=== PATIENT | male | born 1945 | race Caucasian/White ===

== ENCOUNTER 2019-11-01 08:22 | Observation (INO) ==
--- NOTE | 2019-09-23 21:00 | PAT Medication Instructions ---
Medication Instructions Date of Service September 23, 2019 Home Medications albuterol sulfate 90 mcg/actuation aerosol inhaler 2 puffs INH QID PRN aspirin 81 mg tablet,delayed release 81 mg PO QAM budesonide-formoterol HFA 160 mcg-4.5 mcg/actuation aerosol inhaler 2 puffs INH BID carvedilol 6.25 mg tablet 6.25 mg PO BID diclofenac sodium 1 % topical gel 2 gm TOP BID gabapentin 100 mg capsule 100 mg PO TID isosorbide dinitrate 20 mg tablet 20 mg PO TID levothyroxine 112 mcg capsule 112 mcg PO QAM linagliptin 5 mg tablet 5 mg PO QAM meclizine 12.5 mg tablet 12.5 mg PO TID PRN metformin 500 mg tablet 500 mg PO BID multivitamin chewable tablet 1 tab PO DAILY nitroglycerin 0.4 mg sublingual tablet 0.4 mg SL Q5M PRN omega-3 fatty acids 1,000 mg capsule 1,000 mg PO BID potassium chloride 10 mEq capsule,extended release 10 meq PO BID torsemide 20 mg tablet 20 mg PO QAM triamcinolone acetonide 55 mcg nasal spray aerosol 1 sprays INTNAS QPM acetaminophen [Tylenol Arthritis Pain] 650 mg PO BID lisinopril 20 mg PO QAM Continue as directed nitroglycerin 0.4 mg sublingual tablet 0.4 mg SL Q5M PRN (if needed) STOP taking 2 weeks before surgery (or as soon as possible if surgery is within 2 weeks) omega-3 fatty acids 1,000 mg capsule 1,000 mg PO BID STOP taking 24 hours before surgery diclofenac sodium 1 % topical gel 2 gm TOP BID DO NOT take the morning of surgery linagliptin 5 mg tablet 5 mg PO QAM metformin 500 mg tablet 500 mg PO BID multivitamin chewable tablet 1 tab PO DAILY potassium chloride 10 mEq capsule,extended release 10 meq PO BID torsemide 20 mg tablet 20 mg PO QAM lisinopril 20 mg PO QAM Take morning of surgery With a small sip of water, OTHERWISE NOTHING TO EAT OR DRINK AFTER MIDNIGHT: albuterol sulfate 90 mcg/actuation aerosol inhaler 2 puffs INH QID PRN (use if needed; please bring with you to hospital day of surgery if possible) aspirin 81 mg tablet,delayed release 81 mg PO QAM budesonide-formoterol HFA 160 mcg-4.5 mcg/actuation aerosol inhaler 2 puffs INH BID carvedilol 6.25 mg tablet 6.25 mg PO BID gabapentin 100 mg capsule 100 mg PO TID isosorbide dinitrate 20 mg tablet 20 mg PO TID levothyroxine 112 mcg capsule 112 mcg PO QAM meclizine 12.5 mg tablet 12.5 mg PO TID PRN (if needed) acetaminophen [Tylenol Arthritis Pain] 650 mg PO BID (okay to take up to 4 hours prior to surgery if needed) Take evening before surgery albuterol sulfate 90 mcg/actuation aerosol inhaler 2 puffs INH QID PRN (if needed) budesonide-formoterol HFA 160 mcg-4.5 mcg/actuation aerosol inhaler 2 puffs INH BID carvedilol 6.25 mg tablet 6.25 mg PO BID gabapentin 100 mg capsule 100 mg PO TID isosorbide dinitrate 20 mg tablet 20 mg PO TID meclizine 12.5 mg tablet 12.5 mg PO TID PRN (if needed) metformin 500 mg tablet 500 mg PO BID potassium chloride 10 mEq capsule,extended release 10 meq PO BID triamcinolone acetonide 55 mcg nasal spray aerosol 1 sprays INTNAS QPM acetaminophen [Tylenol Arthritis Pain] 650 mg PO BID Other Notes If you have any questions please call us at [phone] or [phone] or [phone] or [phone]
--- NOTE | 2019-09-25 11:41 | Anesthesiology Consultation ---
Date of Service September 25, 2019 Assessment & Plan (1) Encounter for pre-operative examination: Per PAT assessment on 09/24: Travel screen- Lives in [place]. No known COVID-19 positive contacts. No history of COVID-19 testing. No current COVID-19 related symptoms. Patient having preop COVID testing at [facility]. Awaiting results. - Cardiology office visit: 08/22/19: "Chronic diastolic heart failure now with volume overload secondary to non compliance with diet.. Wear compression stocking above knees during day time.. Take torsemide 20 mg today after going home today.. Take torsemide 20 mg 3 tabs in the morning on 08/22 and .. From Take torsemide 40 mg daily.. Check weight daily.. Fluid restriction and low slat diet were emphasized." Per cardiology physician followup note: 09/05/19: "Spoke with pt's via phone for follow up.. She reports that his LE edema has improved.. She had not noted SOB and pt has not reported SOB.. Reviewed when to call with worsening symptoms and weight gain." Advised to f/u 11/2019. No LE edema noted at PAT visit 09/25/19. - Check BSG AM DOS Chart Review Chart Review: Acceptable Risk for Surgery (pending COVID testing) and Patient seen in Pre Admission Testing Teaching & Discussion Pre-Anesthesia Teaching/Discussion Notes: Instructed NPO after midnight before surgery,except medications with 15 cc of water. Medication instructions provided according to the PAT guidelines. History Surgery Operation Date: 11/01/19 11:10 Proposed Procedures p Left Total Knee Arthroplasty - Cleveland Umana MD Height/Weight Height: 6 ft Weight: 127.9 kg Allergies Allergy/AdvReac Type Severity Reaction Status Date / Time No Known Allergies Allergy Verified 09/21/19 08:48 Medications Home Medications Medication Instructions Recorded Confirmed Last Taken albuterol sulfate 90 mcg/actuation 2 puffs INH QID PRN 04/26/19 09/21/19 Unknown aerosol inhaler aspirin 81 mg tablet,delayed 81 mg PO QAM 04/26/19 09/21/19 Unknown release budesonide-formoterol HFA 160 2 puffs INH BID 04/26/19 09/21/19 Unknown mcg-4.5 mcg/actuation aerosol inhaler carvedilol 6.25 mg tablet 6.25 mg PO BID 04/26/19 09/21/19 Unknown diclofenac sodium 1 % topical gel 2 gm TOP BID 04/26/19 09/21/19 Unknown gabapentin 100 mg capsule 100 mg PO TID 04/26/19 09/21/19 Unknown isosorbide dinitrate 20 mg tablet 20 mg PO TID 04/26/19 09/21/19 Unknown levothyroxine 112 mcg capsule 112 mcg PO QAM 04/26/19 09/21/19 Unknown linagliptin 5 mg tablet 5 mg PO QAM 04/26/19 09/21/19 Unknown meclizine 12.5 mg tablet 12.5 mg PO TID PRN 04/26/19 09/21/19 Unknown metformin 500 mg tablet 500 mg PO BID 04/26/19 09/21/19 Unknown multivit with min-folic 1 tab PO DAILY 04/26/19 09/21/19 Unknown acid-lutein 400 mcg-250 mcg chewable tablet nitroglycerin 0.4 mg sublingual 0.4 mg SL Q5M PRN 04/26/19 09/21/19 Unknown tablet omega-3 fatty acids 1,000 mg 1,000 mg PO BID 04/26/19 09/21/19 Unknown capsule potassium chloride 10 mEq 10 meq PO BID 04/26/19 09/21/19 Unknown capsule,extended release torsemide 20 mg tablet 20 mg PO QAM 04/26/19 09/21/19 Unknown triamcinolone acetonide 55 mcg 1 sprays INTNAS QPM 04/26/19 09/21/19 Unknown nasal spray aerosol acetaminophen [Tylenol Arthritis 650 mg PO BID 09/19/19 09/21/19 Unknown Pain] lisinopril 20 mg PO QAM 09/19/19 09/21/19 Unknown Past Medical History Medical History CHF (congestive heart failure) COPD (chronic obstructive pulmonary disease) stable Coronary arteriosclerosis per records Diabetes mellitus, type 2 NIDDM Hyperlipidemia Hypertension Hypothyroidism Obesity Sleep apnea BIPAP Exercise / Class Metabolic Activity III < 4 Walking/Shop/Light housework Past Family History Family History Other No family history of adverse response to anesthesia Past Surgical History Surgical History History of bilateral cataract extraction History of carpal tunnel surgery unsure of which wrist History of cholecystectomy History of colonoscopy with polypectomy History of sinus surgery History of tooth extraction all teeth History of umbilical hernia repair Past Anesthesia History No Hx of Anesthesia Complications and No Family Hx of Anesthesia Complications History of PONV No Hx of PONV and No Hx of Motion Sickness Social History Smoking Status: Former smoker tobacco type: smokeless tobacco Do You Dip or Chew Tobacco: Yes (1 bag a week/advised npo am dos) Smoking End Date: quit 14 yrs ago Hx Alcohol Use: No (quit 20yrs ago) Hx Substance Use: No substance use type: does not use Review of Systems Patient denies chest pain, shortness of breath, reflux, cough, wheezing, palpitations. Physical Exam Vital Signs VITALS BP 111/65 P 75 TEMP 98.2 SP02 95%Ra RESP 18 PHYSICAL Full neck and c-spine range of motion. Full TMJ range of motion. TMD 3 finger breaths (difficult to palpate) Mallampati Score 1 Dentition: upper/lower dentures (full) Lungs: clear throughout to auscultation Cardiac: regular rate and rhythm, no murmurs noted Spine: normal Carotid arteries: negative bruit Extremities: no edema Thick neck Testing Laboratory Results 09/25/19 12:06 09/25/19 12:06 PT 11.3 Seconds (9.0-12.0) 09/25/19 12:06 INR 1.1 (0.9-1.1) 09/25/19 12:06 APTT 25.1 Seconds (21.0-31.0) 09/25/19 12:06 Hemoglobin A1c 7.0 % (4.5-5.6) H 09/25/19 12:06 Blood Type O Positive 09/25/19 12:06 Antibody Screen NEGATIVE 09/25/19 12:06 Electrocardiogram Date: 01/27/19 NSR with sinus arrhythmia at 73bpm. Chest X-Ray Date: 09/25/19 Cardiac silhouette is enlarged. There is mild mediastinal widening. No pneumothorax, large pleural effusion, overt pulmonary edema or lobar airspace consolidation typical for pneumonia. Mild linear subsegmental bibasilar densities are noted along with blunting of the posterior costophrenic angles. Degenerative changes of the shoulders and spine. IMPRESSION: Cardiomegaly without acute process. Mild linear subsegmental bibasilar atelectasis. Echocardiogram Date: 12/01/18 EF 68%. No RWMA. Mildly increased cLV wall thickness. Grade I DD. ADARSH. Mild AV sclerosis. Mildly enlarged proximal ascending thoracic aorta. Stress Test Date: 09/30/14 Type: DSE DSE without inducible ischemia or wall motion abnormalities at 96% MPHR. LVEF 60%. Mildly increased cLV wall thickness. No significant valvular disease.
--- NOTE | 2019-09-25 12:42 | XRay Report ---
XR chest Pre-admission PA/Lat HISTORY: 74 years-old Male PAT preoperative exam. No acute chest complaints COMPARISON: None TECHNIQUE: PA and lateral views of the chest FINDINGS: Cardiac silhouette is enlarged. There is mild mediastinal widening. No pneumothorax, large pleural ef fusion, overt pulmonary edema or lobar airspace consolidation typical for pneumonia. Mild linear subs egmental bibasilar densities are noted along with blunting of the posterior costophrenic angles. Dege nerative changes of the shoulders and spine. IMPRESSION: 1. Cardiomegaly without acute process. 2. Mild linear subsegmental bibasilar atelectasis. ACT 112: Negative or not required by law. The above report was generated using voice recognition software. It may contain grammatical, syntax o r spelling errors. Electronically signed by: Jamal French M.D. 09/25/2019 12:40 PM
[2019-09-25 14:14] LABS: Basophils # (auto) 0.03 K/uL (0-0.2); Basophils % (auto) 0.3 %; Eosinophils # (auto) 0.32 K/uL (0-0.5); Eosinophils % (auto) 3.1 %; Hematocrit (blood only) 41.3 % (42-52); Hemoglobin 13.7 g/dL (14.0-18.0); Immature Granulocytes # (auto) 0.11 K/uL (0.00-0.02); Immature Granulocytes % (auto) 1.1 %; Lymphocytes # (auto) 1.99 K/uL (1.2-3.4); Lymphocytes % (auto) 19.5 %; Mean Corpuscular Hemoglobin 31.6 pg (25-34); Mean Corpuscular Hgb Conc 33.2 g/dL (32-36); Mean Corpuscular Volume 95.2 fL (80-100); Mean Platelet Volume 9.2 fL (7.4-10.4); Monocytes % (auto) 5.9 %; Neutrophils # (auto) 7.18 K/uL (1.4-6.5); Neutrophils % (auto) 70.1 %; Platelet Count 246 K/uL (130-400); RDW Coefficient of Variation 12.9 % (11.5-14.5); RDW Standard Deviation 44.3 fL (36.4-46.3); Red Blood Count 4.34 M/uL (4.7-6.1); White Blood Count 10.23 K/uL (4.8-10.8)
[2019-09-25 14:17] LABS: Estimated Average Glucose 154 mg/dl
[2019-09-25 14:22] LABS: BUN Creatinine Ratio 25.2 (10-20); Calcium 8.7 mg/dl (8.5-10.1); Est GFR (African American) 96.5; Est GFR (Non-African American) 83.3; Potassium 3.8 mmol/L (3.5-5.1)
[2019-09-25 14:25] LABS: INR 1.1 (0.9-1.1); Partial Thromboplastin Ratio 0.9; Partial Thromboplastin Time 25.1 Seconds (21.0-31.0); Prothrombin Time 11.3 Seconds (9.0-12.0)
--- NOTE | 2019-10-27 18:35 | History and Physical Report ---
DATE OF ADMISSION: 11/01/2019 CHIEF COMPLAINT: Bilateral knee pain and discomfort. HISTORY OF PRESENT ILLNESS: The patient is a 74-year-old gentleman who is referred by my partner, Dr. Schilling for surgical treatment of his knees. He has got a long history of bilateral knee pain and discomfort that has gotten worse over time. Both knees hurt him significantly. The right knee hurts a bit more, but the left knee, when it hurts, it causes severe pain for several days. He has trouble getting around. He uses a cane most of the time due to his knees. He feels like to going to give out any time. He has had steroid shots, which helped only very temporarily. He is really hoping to get both of his knees replaced. It is really limiting his activities. PAST MEDICAL HISTORY: Significant for: 1. Hypertension. 2. Elevated cholesterol. 3. Asthma. 4. COPD. 5. Coronary artery disease. 6. Sleep apnea. 7. Diabetes. 8. Obesity. PAST SURGICAL HISTORY: Previous surgeries include: 1. Herniorrhaphy. 2. Cholecystectomy. ALLERGIES: None. CURRENT MEDICINES: Include: 1. Tylenol. 2. Albuterol inhaler. 3. Aspirin. 4. Symbicort. 5. Carvedilol. 6. Diclofenac topical cream. 7. Gabapentin. 8. Isosorbide. 9. Levothyroxine. 10. Tradjenta. 11. Lisinopril. 12. Meclizine. 13. Metformin. 14. Multivitamin. 15. Nitroglycerin. 16. Fish oil. 17. Potassium chloride. 18. Furosemide. 19. Triamcinolone nasal spray. SOCIAL HISTORY: A 74-year-old male. He is . He is from [place]. He does not smoke. FAMILY HISTORY: Noncontributory. REVIEW OF SYSTEMS: Significant for diabetes. Denies any chest pain or shortness of breath. No history of DVT or PE. No known bleeding problems. He does have a long history of heart disease and multiple comorbidities. PHYSICAL EXAMINATION: GENERAL: Physical examination shows a pleasant elderly male. Looks clinically to be in reasonably good health. HEENT: Benign. NECK: Supple, no lymphadenopathy. LUNGS: Clear to auscultation. HEART: Regular rate and rhythm. ABDOMEN: Soft, nontender, nondistended. EXTREMITIES: Grossly neurovascularly intact except as follows. Examination of both lower extremities reveals the patient walks with a fairly unsteady gait. He requires a cane to ambulate. He walks with a shuffling kind of gait with his knee slightly bent. Examination of the left knee reveals neutral alignment. He has got about 10-15 degree flexion contracture. He can flex to 110 degrees. He has got no pain with hip motion. Small knee effusion. He is neurologically intact. Examination of the right knee reveals slight varus alignment. He is tender over the medial joint line. Range of motion is 10-120. No instability. X-RAYS: X-rays of both knees reveal advanced bilateral knee DJD. He has got complete loss of his medial joint space on both sides. He has got some loose bodies in his knee, particularly on the left. ASSESSMENT: A 74-year-old male with multiple medical comorbidities including hypertension, coronary artery disease, emphysema, chronic obstructive pulmonary disease, elevated cholesterol and diabetes with bilateral knee degenerative joint disease. It is really limiting his activities. He has failed conservative care. He would like to consider a knee replacement. PLAN: We talked about treatment options. He is not an optimal surgical candidate for either knee, but certainly not a candidate for bilateral knee replacement. We will proceed cautiously with a left knee replacement and see how he does. The risks and benefits of left total knee replacement were explained to the patient including but not limited to DVT, PE, , infection, neurological injury, vascular injury, bleeding problem, pain, limited range of motion, stiffness, failure to relieve symptoms, incomplete relief of symptoms, need for further surgery in future, fracture, leg length inequality, nerve palsy, etc. The patient understands and desires to proceed. Informed consent was obtained. We did talk to him about holding his lisinopril and metformin in the morning of surgery. He will take the Carvedilol. We will likely have the Cardiology Service follow him in the hospital for fluid management. He is hoping to be discharged to home using home health. SHASHA
[~2019-11-01 08:22] MED LIST: ACETAMINOPHEN 500 MG TAB PO SCH; BUPIVACAINE 0.5 % 5 MG/1 ML PF 10ML VIAL ONE; BUPIVACAINE LIPOSOME/PF 266 MG, BUPIVACAINE/EPINEPHRINE 50 ML, SODIUM CHLORIDE 0.9% 30 ... INFIL SCH; BUPIVACAINE/EPINEPHRINE 0.25% 1:200,000 30 ML VIAL ONE; CEFAZOLIN 3000MG 72.5 ML IV SCH; DEXAMETHASONE SOD INJ 4 MG/ML VIAL ONE; FAMOTIDINE 20 MG TAB PO SCH; GABAPENTIN 300 MG CAP PO SCH; LR 500ML BOLUS, THEN 15ML/HR IV SCH; METOCLOPRAMIDE HCL 10 MG TABLET PO SCH
--- NOTE | 2019-11-01 08:40 | History & Physical Bridge Note ---
Date of Service November 01, 2019 History & Physical Bridge Note I have examined the patient, reviewed the History & Physical and in the interval since the performance of the History & Physical I have noted the following changes of clinical significance: no changes noted
[2019-11-01] MEDS: LR 60ML/HR IV SCH ×2 (09:27→11:26)
[2019-11-01] MEDS ORDERED: TRANEXAMIC ACID / 0.7% NACL 1,000 MG/100 ML BAG IV STA (09:46)
[2019-11-01] MEDS ORDERED: ONDANSETRON INJ 2 MG/ML 2 ML VIAL ONE (10:06)
[2019-11-01] MEDS ORDERED: fentaNYL citrate 100 MCG/2 ML VIAL ONE ×2 (10:06→13:01)
[2019-11-01] MEDS ORDERED: LIDOCAINE HCL 2% 2 ML VIAL/AMP(20MG/ML) INFIL ONE (10:06)
[2019-11-01] MEDS ORDERED: MIDAZOLAM HCL 1 MG/ML 2ML VIAL ONE (10:06)
[2019-11-01] MEDS ORDERED: PROPOFOL IV EMULSION 10 MG/ML 20 ML VIAL IV ONE ×4 (10:06→12:40)
[2019-11-01] MEDS ORDERED: BACITRACIN INJ 50,000 UNIT VIAL ONE (11:35)
[2019-11-01] MEDS ORDERED: SODIUM CHLORIDE 0.9% PF 50 ML VIAL ONE (11:35)
[2019-11-01] MEDS ORDERED: BUPIVACAINE/EPINEPHRINE 0.25% 1:200,000 30 ML VIAL ONE (11:35)
[2019-11-01] MEDS ORDERED: BUPIVACAINE LIPOSOME 1.3% 266 MG/20 ML VIAL ONE (11:35)
[2019-11-01] MEDS ORDERED: PHENYLEPHRINE HCL 10 MG/ML VIAL ONE (12:22)
[2019-11-01] MEDS ORDERED: TRANEXAMIC ACID / 0.7% NACL 1000MG/100ML BAG IV ONE (13:14)
--- NOTE | 2019-11-01 13:47 | Post Operative Brief Note ---
PG Immediate Post Op with CF Date of Surgery November 01, 2019 Pre & Post Diagnosis Operation Date: 11/01/19 10:40 Pre-Op Diagnosis: Left Knee Degenerative Joint Disease Post-Op Diagnosis: Left Knee Degenerative Joint Disease I identified the patient and participated in the time-out.: Yes Procedure Operation Date: 11/01/19 10:40 Actual Procedures p Left Total Knee Arthroplasty(Left) - Cleveland Umana MD Surgeon Cleveland Umana MD Arts Therapist Lay, PAC Estimated Blood Loss 50 Findings Consistent with Post-Op Diagnosis Fluids 2400 cc Specimens Specimen Description: Permanent A: Left Knee Bone and Tissue Drains Mendiola Catheter (inserted by PA-C after anesthesia without difficulty) Anesthesia Type Spinal MAC Disposition Accompanied Patient To Recovery: No Disposition: Recovery Room
--- NOTE | 2019-11-01 14:09 | XRay Report ---
XR knee LT 1 or 2V routine HISTORY: 74 years-old Male Surgical Post Op acute left knee total joint arthroplasty COMPARISON: Knee radiographs 09/21/2019 TECHNIQUE: 2 views of the left knee FINDINGS: Left knee total joint arthroplasty and patella resurfacing. Anterior midline skin deonna are noted a long with expected postoperative soft tissue swelling and deep tissue air with surgical drainage cath eter. Arterial calcifications. No acute fracture, malalignment or retained foreign body. IMPRESSION: Left knee total joint arthroplasty with expected postoperative changes. ACT 112: Negative or not required by law. The above report was generated using voice recognition software. It may contain grammatical, syntax o r spelling errors. Electronically signed by: Jamal French M.D. 11/01/2019 2:08 PM
--- NOTE | 2019-11-01 14:09 | Operative Report ---
Post Operative Report Pre & Post Diagnosis Operation Date: 11/01/19 10:40 Pre-Op Diagnosis: Left Knee Degenerative Joint Disease Post-Op Diagnosis: Left Knee Degenerative Joint Disease I identified the patient and participated in the time-out.: Yes Procedure Operation Date: 11/01/19 10:40 Actual Procedures p Left Total Knee Arthroplasty(Left) - Cleveland Umana MD Surgeon Cleveland Umana MD Real Estate Coordinator Lay, DURGA Estimated Blood Loss 50 Findings Consistent with Post-Op Diagnosis Operative findings revealed advanced left knee DJD. Extensive grade 4 [id number] disease of the medial compartment. He had a varus deformity to his knee and about a 15degree to 20 degree flexion contracture. Moderate-sized joint effusion. He had osteophytes in all 3 compartments most severe in the medial side. Fluids 2400 cc. Specimens Left knee sent for pathology. Drains None. Complications none Disposition Accompanied Patient To Recovery: No Disposition: Recovery Room Indications Patient is a 74-year-old gentleman with a host of medical problems whose had a long history of bilateral knee pain discomfort. He has been through extensive conservative treatment which failed. He is really limit his activities. He had severe arthritis in both knees with significant flexion contractures and having trouble getting around. He elected proceed with surgical treatment. Teofilo Liu, physician graduate assistant, was present for the entire procedure. He was critical for patient positioning, prepping, draping, retraction, exposure, wound closure, and application of the sterile dressing. Description of Procedure Operative implants consisted of: 1. Biomet Vanguard size 75 left posterior by femoral component. 2. Biomet size 79 tibial tray. 3. 10 mm posterior stabilized polyethylene insert. 4. 34 x 8 and half all poly-patella. Patient was taken to the operating room identified and placed on the operating table supine position protectors were properly padded. IV antibiotics arrived by anesthesia team. A spinal anesthetic and abductor canal block had provided holding area. Mendiola catheter was placed in sterile fashion. A left thigh turn was then placed in the left lower extremities and prepped and draped in usual sterile fashion. The left leg was elevated and exsanguinated with use of an Esmarch and turn was placed at 300 mmHg. An anterior approach to the left knee was then performed to a longitudinal incision centered over the patella. Sharp dissection was carried through subcutaneous tissue down to the level of the extensor mechanism. A medial parapatellar arthrotomy incision was made. Some subperiosteal dissection was carried out medially. The fat pad was resected from each patella tendon. Lateral patellofemoral ligament was released. Patella was subluxated laterally and the knee was flexed. The osteophytes were taken off the distal femur. The ACL and PCL were then released from distal femur the tibia subluxate anteriorly. External tibial alignment jig was placed in the interface the tibia and adjusted 16 mm medially. Proximal tibial cut was made to move about a millimeter bone from most efficient aspect of the medial till plateau. This did take a fairly large piece off laterally. Some osteophytes were taken off medial and posterior medially. Attention drawn the femur. The distal femur was entered with a sharp drop with the intramedullary canal was suction. A left 6 degree valgus cutting guide was placed but distal femoral cutting block was pinned in place. Distal femoral cut was made to take an additional 3 mm of bone off distal femur. The femur was then sized to a size 75. We downsized slightly. The AP cutting block was pinned parallel to the epicondylar axis which was 6 degrees of external rotation. The anterior cut, anterior chamfer, posterior cut, posterior chamfer cuts were made. Box cutting guide was placed in a just slight lateral box cut was made. The knee was flexed. The remnants of the medial lateral menisci were excised. The osteophytes were taken off the posterior aspect of the femur. A trial femoral component was placed for the tibial tray was pinned in maximum external rotation and the drill and stem punch were used to create defect in proximal tip for the tibial tray. The knee was then trialed the 10 mm insert fit most appropriately. Attention drawn the patella. The patella was cleaned of all soft tissues. Patella thickness measured 26 mm in thickness was cut down to 16. He was sized to a size 34 patella. The lug holes were drilled for the 34 patella. Lateral osteophyte was removed. Patella button was placed. Knee was taken through range of motion patella tracked nicely with no thumbs test. Attention drawn to placing the permanent components. All trial components removed. Bone plug was placed in the distal femur limit blood loss put a double batch [place] G cement was mixed. A [employer] Vanguard size 75 left posterior by femoral component, a size 79 tibial tray, a 10 mm posterior box polyethylene insert, and a 34 x 8 and half all poly-patella were then cemented in place. The knee was brought out into full extension total cement hardened. Final cement check was then performed. Pericapsular tissues were injected with total 100 cc of combination of 20 cc of Exparel, 30 cc normal saline, 50 cc of quarter percent Marcaine with epinephrine. Patient did receive 1 g tranexamic acid. The tourniquet was then let down for final tourniquet time of 62 minutes. Hemostasis assured use electrocautery. The wounds once again irrigated and the extensor mechanism was then closed with combination 1 PDS suture #1 Vicryl suture in [id number] fashion. Extensor mechanism checked found to be intact the subcutaneous tissue then closed with 2 Dexon suture in a buried interrupted fashion skin was closed skin deonna. Leg was then cleaned dried a sterile dressing composed Xeroform, 4 x 4's, sterile cast padding, Rudy bandage were applied. Patient then transferred to the recovery room in stable condition. Patient tolerated procedure well and there were no complications. I attest to the content of the Intraoperative Record and any orders documented therein. Any exceptions are noted below.
--- NOTE | 2019-11-01 14:36 | Anesthesiology Progress Note ---
Date of Service November 01, 2019 Anesthesia Post Procedure Vital Signs Vital Signs: Temp Pulse Pulse Resp BP BP Pulse Ox 11/01/19 14:20 92 H 22 116/75 93 11/01/19 14:10 89 22 114/72 97 11/01/19 14:00 85 18 117/71 97 11/01/19 13:57 36.1 C L 93 H 20 113/66 97 11/01/19 09:38 87 18 135/78 93 11/01/19 09:17 37 C 80 20 126/73 20 L Transfer of Care Handoff Completed per policy Notes Mental Status: alert / awake / arousable Patient Amnestic to Procedure: Yes Nausea / Vomiting: adequately controlled Pain: adequately controlled Airway Patency, RR, SpO2: stable & adequate BP & HR: stable & adequate Hydration State: stable & adequate Neuraxial Anesthesia: was administered and sensory block is resolving Anesthetic Complications: no major complications apparent
[2019-11-01] MEDS ORDERED: MAGNESIUM HYDROXIDE SUSP 30 ML UDC PO PRN (15:20)
[2019-11-01] MEDS ORDERED: METOCLOPRAMIDE HCL INJ 5 MG/ML 2 ML VIAL IV PRN (15:20)
[2019-11-01] MEDS ORDERED: GLUCOSE 40% GEL 15 GM TUBE PO PRN (15:20)
[2019-11-01] MEDS ORDERED: MECLIZINE 12.5 MG TAB PO PRN (15:20)
[2019-11-01] MEDS ORDERED: CARBOHYDRATES FOR HYPOGLYCEMIA PO PRN (15:20)
[2019-11-01] MEDS ORDERED: DEXTROSE 50% 50 ML SYRINGE IV PRN (15:20)
[2019-11-01] MEDS ORDERED: HYDROmorphone INJ 0.5 MG/0.5 ML SYR IV PRN (15:20)
[2019-11-01] MEDS ORDERED: ALUMINUM/MAGNESIUM SUSP 30 ML UDC PO PRN (15:20)
[2019-11-01] MEDS ORDERED: NALOXONE HCL 0.4 MG/1 ML VIAL/CARP IV PRN (15:20)
[2019-11-01] MEDS ORDERED: GLUCOSE 10 TABS/TUBE PO PRN (15:20)
[2019-11-01] MEDS ORDERED: GLUCAGON FOR INJ 1 MG VIAL SQ PRN (15:20)
[2019-11-01] MEDS ORDERED: NITROGLYCERIN SL 0.4 MG/TAB TAB SL PRN (15:20)
[2019-11-01] MEDS ORDERED: TRAMADOL HCL 50 MG TABLET PO PRN (15:20)
[2019-11-01] MEDS ORDERED: ONDANSETRON INJ 2 MG/ML 2 ML VIAL IV PRN (15:20)
[2019-11-01] MEDS ORDERED: bisacodyL 10 MG SUPP PR PRN (15:20)
[2019-11-01] MEDS ORDERED: TAMSULOSIN HCL 0.4 MG CAP PO PRN (15:20)
[2019-11-01] MEDS ORDERED: PHARMACY GLYCEMIC MGMT CONSULT PRN (15:22)
[2019-11-01] MEDS ORDERED: ALBUTEROL HFA 8 GM INHALER INH PRN (15:37)
--- NOTE | 2019-11-01 16:22 | Hospitalist Consultation ---
Date of Consultation November 01, 2019 Assessment & Plan (1) Left knee DJD: - Pain management, bowel regimen and DVT ppx per the primary team with asa 81 mg BID - PT/OT consults, pt is planning on outpatient therapy with home health services on discharge - Follow am CBC to monitor for acute blood loss (2) CHF (congestive heart failure): - Cont beta blockade, asa, RUDY and diuretic as per [employer] meds (3) Hypertension: - Cont lisinopril 20 mg QAM, carvedilol 6.25 mg BID - BP stable at 130/82 (4) Hyperlipidemia: - Not on statin therapy (5) Hypothyroidism: - Cont levothyroxine 112 mcg daily (6) Diabetes: - ISS with accuchecks achs, - Hold metformin and linagliptin 5 mg daily (7) COPD (chronic obstructive pulmonary disease): - Cont budesonide-formoterol inhaler, bipap HS (8) GERD (gastroesophageal reflux disease): - Not on PPI at home (9) Sleep apnea: - Cont home bipap, but machine from home, is currently on room air. (10) Obesity (BMI 30-39.9): - Diet and exercise to be encouraged - BMI of 38.2 DVT ppx: Teds, asa BID CODE: FULL Dispo: From home, dc likely within 1-2 days. Supervising Physician Co-Signing Physician Notes I personally saw and examined the patient. I verified all hinojosa points and agree with KAVITA Angeles with the following exceptions and/or additions: 74 year old male s/p left TKA. Currently feels well. No questions or concerns. O/E Pt chewing tobacco, Bibasal decreased air entry, pitting edema to mid thins 1+ b/l. A/P agree with plan above, medically appears stable. Advised strongly to give up the chewing tobacco and use nicotine replacement products as prescribed. History of Present Illness Reason for Consultation: Medical management Attending Physician: Cleveland Umana MD History of Present Illness This is a 74 yo M with PMHx of Chronic diastolic CHF, CAD, HTN, HLD, Dm II, COPD, hypothyroidism, obesity with BMI of 38.2, and sleep apnea on bipap who underwent elective Left TKA by Dr. Umana on 11/01/2019. Pt is doing well, has sensation coming back into his feet and can move the left foot/toes without any difficulty. He plans on having PT/OT come into his home, and then transition to outpatient PT once he is able to. Patient has not yet had anything to eat, but tolerating fluids without any difficulty. Last BM was yesterday morning. He lives at home with his and typically takes care of her. Patient denies any other acute complaints or concerns at bedside. He has brought his BiPAP machine in from home for use. Allergies Allergy/AdvReac Type Severity Reaction Status Date / Time No Known Allergies Allergy Verified 11/01/19 08:57 Home Medications Home Medications Medication Instructions Recorded Confirmed Type albuterol sulfate 90 mcg/actuation 2 puffs INH QID PRN 04/26/19 11/01/19 History aerosol inhaler aspirin 81 mg tablet,delayed 81 mg PO QAM 04/26/19 11/01/19 History release budesonide-formoterol HFA 160 2 puffs INH BID 04/26/19 11/01/19 History mcg-4.5 mcg/actuation aerosol inhaler carvedilol 6.25 mg tablet 6.25 mg PO BID 04/26/19 11/01/19 History diclofenac sodium 1 % topical gel 2 gm TOP BID 04/26/19 11/01/19 History levothyroxine 112 mcg capsule 112 mcg PO QAM 04/26/19 11/01/19 History linagliptin 5 mg tablet 5 mg PO QAM 04/26/19 11/01/19 History meclizine 12.5 mg tablet 12.5 mg PO TID PRN 04/26/19 11/01/19 History metformin 500 mg tablet 500 mg PO BID 04/26/19 11/01/19 History multivit with min-folic 1 tab PO DAILY 04/26/19 11/01/19 History acid-lutein 400 mcg-250 mcg chewable tablet nitroglycerin 0.4 mg sublingual 0.4 mg SL Q5M PRN 04/26/19 11/01/19 History tablet omega-3 fatty acids 1,000 mg 1,000 mg PO BID 04/26/19 11/01/19 History capsule potassium chloride 10 mEq 10 meq PO BID 04/26/19 11/01/19 History capsule,extended release torsemide 20 mg tablet 20 mg PO QAM 04/26/19 11/01/19 History triamcinolone acetonide 55 mcg 1 sprays INTNAS QPM 04/26/19 11/01/19 History nasal spray aerosol acetaminophen [Tylenol Arthritis 650 mg PO BID 09/19/19 11/01/19 History Pain] lisinopril 20 mg PO QAM 09/19/19 11/01/19 History Patient History Medical History CHF (congestive heart failure) COPD (chronic obstructive pulmonary disease) stable Coronary arteriosclerosis per records Diabetes mellitus, type 2 NIDDM Hyperlipidemia Hypertension Hypothyroidism Obesity Sleep apnea BIPAP Surgical History History of bilateral cataract extraction History of carpal tunnel surgery unsure of which wrist History of cholecystectomy History of colonoscopy with polypectomy History of sinus surgery History of tooth extraction all teeth History of umbilical hernia repair Family History Other No family history of adverse response to anesthesia Social History Smoking Status: Never smoker Smoking End Date: quit 14 yrs ago; Second Hand Exposure: Yes ( smokes); Do You Dip or Chew Tobacco: Yes (1 bag a week/advised npo am dos); Tobacco Cessation Education Requested by Patient: No Hx Alcohol Use: No (quit 20yrs ago) Hx Substance Use: No Preferred Language: Persian Communication Ability: Effective Rodent Exterminator Required: No Beliefs That Will Affect Care: None Current Living Situation: Spouse Other Information That Helps Us Care for You: No Review of Systems Review of Systems: Constitutional: No fever, sweats or chills Eyes: No diplopia, no worsening or blurred vision ENT: normal hearing, no trouble swallowing Respiratory: No cough, sputum, dyspnea at rest or on exertion Cardiovascular: No chest pain, tightness or palpitations Abdomen: No pain, nausea, vomiting, diarrhea or constipation Musculoskeletal: No joint pain, calf pain, swelling Neurologic: No weakness, numbness/tingling, or balance problems Psychiatric: No anxiety or depression Skin: No rash or itch Physical Exam Physical Exam: General: awake, alert, no apparent distress, + obese, BMI 38.2 Head: Normocephalic, atraumatic ENT: PERRL, EOMI, no pharyngeal exudate, mucous membranes moist Chest: Clear to auscultation, on room air, no adventitious breath sounds Cardiac: Regular rate and rhythm, no murmur, no JVD, normal peripheral pulses, good capillary refill Abdominal: NABS x 4 quadrants, abdominally obese, mildly distended, soft, nontender to palpation, no rebound, guarding or tenderness Extremities: LLE Rudy wrap in place, Hemovac drain, dressing C/D/I,+ ice pack, otherwise normal inspection, no peripheral edema or erythema, calfs nontender to palpation Psych: Normal mood and affect Neuro: AAO x 3, no gross motor deficits, speech is clear, + left-sided peripheral sensory deficit compared to the right Skin: no rash or erythema Results & Data Results & Data ([facility]) Vital Signs (Past 12 Hours) Vital Signs Temp Pulse Pulse Resp BP BP Pulse Ox 11/01/19 16:00 36.5 C 81 15 126/72 93 11/01/19 15:30 36.7 C 86 14 122/80 91 11/01/19 15:00 36.6 C 92 H 15 119/79 93 11/01/19 14:40 87 20 123/84 94 11/01/19 14:30 36.4 C L 88 20 127/77 94 11/01/19 14:20 92 H 22 116/75 93 11/01/19 14:10 89 22 114/72 97 11/01/19 14:00 85 18 117/71 97 11/01/19 13:57 36.1 C L 93 H 20 113/66 97 11/01/19 09:38 87 18 135/78 93 11/01/19 09:17 37 C 80 20 126/73 20 L PG Care Time/CCT Total # of Minutes Spent Total Time Spent with Patient: Total time spent is greater than 50% in coordination of care (as documented) at patient's floor/unit and/or counseling patient: Coding Level of Care Code 11417 Inpt Consult Level 3 Diagnoses Left knee DJD M17.12 CHF (congestive heart failure) I50.9 Hypertension I10 Hyperlipidemia E78.5 Hypothyroidism E03.9 Diabetes E11.9 COPD (chronic obstructive pulmonary disease) J44.9 GERD (gastroesophageal reflux disease) K21.9 Sleep apnea G47.30 Obesity (BMI 30-39.9) E66.9
[2019-11-01] MEDS: KETOROLAC TROMETHAMINE 15 MG/ML VIAL IV SCH ×2 (16:45→21:10)
[2019-11-01] MEDS: ACETAMINOPHEN 500 MG TAB PO SCH ×2 (16:45→23:37)
[2019-11-01] MEDS: FERROUS GLUCONATE 324 MG TAB PO SCH (16:47)
[2019-11-01] MEDS: ASCORBIC ACID 500 MG TAB PO SCH (16:47)
[2019-11-01] MEDS: SODIUM CHLORIDE 0.9% 1000ML 1,000 ML IV SCH (16:53)
[2019-11-01] MEDS: INSULIN ASPART 100 UNITS/ML 3 ML PEN SC SCH ×2 (18:27→21:21)
[2019-11-01] MEDS: CEFAZOLIN 2000MG 2,000 MG/15 ML SYR IV SCH (19:34)
--- NOTE | 2019-11-01 19:58 | Pharmacy Report ---
Pharmacy Glycemic Short Note 2 - Date of Service November 01, 2019 - Glycemic Short BSG Results (Last 24 hours): 11/01/19 11/01/19 08:51 17:04 POC Glucose 137 H 139 H OUTPATIENT ANTIDIABETIC REGIMEN: * metformin 500 mg PO BID * linagliptin 5 mg PO qAM * A1c = 7% (09/25/19) ASSESSMENT: * Lawrence is a 74 yo T2DM male POD #0 s/p L TKA * Pt is maintained on oral antidiabetic agents as an outpatient * Will hold oral agents for admission and utilize SQ insulin regimen which is the recommended regimen for inpatient glycemic control. * Will initiate weight based insulin dosing for insulin brenda patient and titrate based on BSG trends * Patient was given a dose of dexamethasone 4 mg IV in the OR. Would anticipate steroid induced hyperglycemia, however dinner BSG = 139 mg/dL. Will hold off on basal insulin at this time. PLAN FOR INPATIENT GLYCEMIC CONTROL: * Hold outpatient oral diabetes medications * Basal insulin * hold * Bolus insulin * NovoLog per scale ACHS or Q6hrs while NPO * Goal Range: Low 110 mg/dL - High 140 mg/dL * Correction Factor: 15 mg/dL/unit * Nutritional / Prandial insulin per carb ratio of 1 unit per 5 grams CHO consumed PLAN FOR DISCHARGE: * A1c of 7% is acceptable * Recommend continuation of home regimen on discharge (metformin + linagliptin) * may consider titrating metformin dose to goal of 1000 mg PO BID * increase by 500 mg per week
[2019-11-01] MEDS ORDERED: TRANEXAMIC ACID / 0.7% NACL 1,000 MG/100 ML BAG IV SCH (20:00)
[2019-11-01] MEDS: DOCUSATE SODIUM 100 MG CAP PO SCH (20:41)
[2019-11-01] MEDS: ASPIRIN 81 MG ECTAB PO SCH (20:42)
[2019-11-01] MEDS: carvediloL 6.25 MG TAB PO SCH (20:42)
[2019-11-01] MEDS: POTASSIUM CHLORIDE 10 MEQ TABCR PO SCH (20:42)
--- NOTE | 2019-11-01 20:42 | Progress Notes ---
DATE: 11/01/2019 SUBJECTIVE: A 74-year-old gentleman postop from a left knee replacement. He is doing well. Not having much pain yet. Denies any chest pain or shortness of breath. Not feeling dizzy or lightheaded. OBJECTIVE: VITAL SIGNS: Temperature is 36.5. Vital signs stable. GENERAL: Shows a pleasant elderly male. He is sitting up in bed and looks pretty comfortable. He is eating his dinner. LUNGS: Clear to auscultation. HEART: Has a regular rate and rhythm. ABDOMEN: Soft, nontender, nondistended. EXTREMITIES: Grossly neurovascularly intact except as follows: Examination of the left lower extremity reveals the leg to be well aligned. His dressing is clean, dry, and intact. He can dorsiflex and plantarflex his foot appropriately. He is neurologically intact. X-RAYS: X-rays of the left knee from recovery room were reviewed. It shows left cemented posterior stabilized total knee arthroplasty. Components looked to be in good position. No signs of problems. ASSESSMENT: A 74-year-old gentleman with multiple medical problems postoperative from a left knee replacement, doing well. His pain is controlled. He is neurologically intact. PLAN: 1. DVT prophylaxis including thigh-high TEDs, SCDs, and aspirin twice a day. 2. PT/OT. Weight bear as tolerated. Left total knee protocol. 3. Pain control, doing well with current pain regimen. We are going to really try and limit his narcotics as I think he is high risk for confusion. We will use Tylenol, limited Toradol and tramadol if needed. 4. IV antibiotics x24 hours. 5. Medical management. We have consulted the medical service as he has got multiple medical issues just in case something becomes clinically apparent. 6. Disposition. He is planning to be discharged home likely with some home health once adequately recovered and medically stable.
[2019-11-01] MEDS: OMEGA-3 (PURIFIED FISH OIL) 1 GM CAP PO SCH (20:43)
[2019-11-01] MEDS: SENNA 8.6 MG TAB PO SCH (20:43)
[2019-11-01] MEDS: TRIAMCINOLONE ACET NASAL SPRAY 10.8ML BTL NAE SCH (20:45)
[2019-11-01] MEDS ORDERED: FLUTICASONE/VILANTEROL 100/25MCG 14 PUFFS/INHALER INH SCH (21:00)
[2019-11-01] MEDS: MONTELUKAST SODIUM 10 MG TABLET PO SCH (21:09)
[2019-11-01] MEDS ORDERED: NICOTINE POLACRILEX 2 MG GUM MT PRN (22:28)
[2019-11-01] MEDS: BUDESONIDE/FORMOTEROL FUMARATE 160/4.5 60 PUFFS/INHALER INH SCH (23:37)
[2019-11-02] MEDS: INSULIN ASPART 100 UNITS/ML 3 ML PEN SC SCH ×6 (00:15→22:30)
[2019-11-02] MEDS: KETOROLAC TROMETHAMINE 15 MG/ML VIAL IV SCH ×4 (02:45→21:29)
[2019-11-02] MEDS: SODIUM CHLORIDE 0.9% 1000ML 1,000 ML IV SCH (02:46)
[2019-11-02] MEDS: CEFAZOLIN 2000MG 2,000 MG/15 ML SYR IV SCH (02:46)
[2019-11-02] MEDS: ACETAMINOPHEN 500 MG TAB PO SCH ×3 (05:09→21:31)
[2019-11-02] MEDS: LEVOTHYROXINE SODIUM 112 MCG TABLET PO SCH (05:09)
[2019-11-02 05:47] LABS: Hematocrit (blood only) 36.9 % (42-52); Hemoglobin 12.8 g/dL (14.0-18.0); Mean Corpuscular Hemoglobin 32.4 pg (25-34); Mean Corpuscular Hgb Conc 34.7 g/dL (32-36); Mean Corpuscular Volume 93.4 fL (80-100); Mean Platelet Volume 9.3 fL (7.4-10.4); Platelet Count 164 K/uL (130-400); RDW Coefficient of Variation 12.9 % (11.5-14.5); RDW Standard Deviation 44.3 fL (36.4-46.3); Red Blood Count 3.95 M/uL (4.7-6.1); White Blood Count 12.87 K/uL (4.8-10.8)
[2019-11-02 06:24] LABS: BUN Creatinine Ratio 27.8 (10-20); Calcium 7.9 mg/dl (8.5-10.1); Creatinine Clr Calc Pharmacy 83.9 ml/min; Est GFR (African American) 80.1; Est GFR (Non-African American) 69.1
[2019-11-02] MEDS ORDERED: NON-FORMULARY MEDICATION (Linagliptin [Tradjenta] 5 MG) PO SCH (09:00)
[2019-11-02] MEDS ORDERED: MULTIVITAMIN TAB PO SCH (09:00)
--- NOTE | 2019-11-02 09:28 | Progress Notes ---
DATE: 11/02/2019 SUBJECTIVE: A 74-year-old gentleman postop day 1 from a left knee replacement. He is doing pretty well. His pain is controlled. Had a pretty good night. No chest pain or shortness of breath. Not feeling dizzy or lightheaded. OBJECTIVE: VITAL SIGNS: Temperature 36.5. Vital signs stable. GENERAL: Physical examination shows a pleasant elderly male. He is sitting up in his bedside and looks pretty comfortable. EXTREMITIES: Examination of the left leg reveals the dressing to be clean, dry and intact. No significant drainage. He can dorsiflex and plantarflex his foot appropriately. LABORATORY DATA: Hemoglobin 12.8. Hematocrit 36.9. White cell count 12.87. Electrolytes are stable. ASSESSMENT: A 74-year-old gentleman with multiple comorbidities, postop day 1 from a left knee replacement, doing pretty well. His pain is controlled. He is neurologically intact. PLAN: 1. DVT prophylaxis include thigh-high TEDs, SCDs, and aspirin twice a day. 2. PT/OT, weightbear as tolerated. Left total knee protocol. 3. Pain control, doing okay with current pain regimen. We are once again going to limit his narcotics to avoid confusion. 4. Disposition: He is planning to be discharged to home with some home health. We will see how things go today. We will likely discharge tomorrow after therapy if he is doing okay.
[2019-11-02] MEDS: METFORMIN HCL 500 MG TAB PO SCH ×2 (09:31→17:27)
[2019-11-02] MEDS: TORSEMIDE 20 MG TAB PO SCH (09:32)
[2019-11-02] MEDS: carvediloL 6.25 MG TAB PO SCH ×2 (09:32→21:29)
[2019-11-02] MEDS: OMEGA-3 (PURIFIED FISH OIL) 1 GM CAP PO SCH ×2 (09:32→21:29)
[2019-11-02] MEDS: ASCORBIC ACID 500 MG TAB PO SCH ×2 (09:32→17:27)
[2019-11-02] MEDS: POTASSIUM CHLORIDE 10 MEQ TABCR PO SCH ×2 (09:32→21:28)
[2019-11-02] MEDS: CEROVITE ADV FORMULA TAB PO SCH (09:32)
[2019-11-02] MEDS: FERROUS GLUCONATE 324 MG TAB PO SCH ×2 (09:32→17:27)
[2019-11-02] MEDS: ASPIRIN 81 MG ECTAB PO SCH ×2 (09:32→21:30)
[2019-11-02] MEDS: lisinopriL 20 MG TAB PO SCH (09:32)
[2019-11-02] MEDS: DOCUSATE SODIUM 100 MG CAP PO SCH ×2 (09:32→21:29)
[2019-11-02] MEDS: BUDESONIDE/FORMOTEROL FUMARATE 160/4.5 60 PUFFS/INHALER INH SCH ×2 (09:34→21:27)
[2019-11-02] MEDS: NICOTINE 7 MG/24 HR TDSY TD SCH (09:48)
--- NOTE | 2019-11-02 12:12 | Hospitalist Progress Note ---
Date of Service November 02, 2019 Assessment & Plan (1) Left knee DJD: - Pain management, bowel regimen and DVT ppx per the primary team with asa 81 mg BID - PT/OT consults, pt is planning on outpatient therapy with home health services on discharge - Hgb minimally decreased today at 12.8 (2) CHF (congestive heart failure): - Cont Coreg, asa, lisinopril, torsemide (3) Hypertension: - Cont lisinopril 20 mg, carvedilol 6.25 mg BID (4) Hyperlipidemia: - Not on statin therapy (5) Hypothyroidism: - Cont levothyroxine 112 mcg daily (6) Diabetes: - ISS with accuchecks achs, - Hold metformin and linagliptin 5 mg daily - bsgs well controlled - Pharmacy consulted (7) COPD (chronic obstructive pulmonary disease): - Cont budesonide-formoterol inhaler, bipap HS (8) GERD (gastroesophageal reflux disease): - Not on PPI at home (9) Sleep apnea: - Cont home bipap, but machine from home, is currently on room air. (10) Obesity (BMI 30-39.9): - Diet and exercise to be encouraged - BMI of 38.2 DVT ppx: Teds, asa BID CODE: FULL Thank you for involving us in the care of this patient. Medicine will sign off at this time Admission and Anticipated Discharge Date Admission Date: November 01, 2019 Subjective Mr. Hayes feels well, he has no complaints today. ROS Constitutional: no chills, aches, sweats or fever Respiratory: no sob,cough, sputum, or wheezing Cardiac: no chest pain, palpitations, edema, orthopnea or lightheadedness GI: no abdominal pain, nausea, vomiting, diarrhea or constipation : no dysuria or hesitancy Extremities: no joint pain or weakness Skin: no rash All other systems reviewed and negative Physical Exam Physical Exam: General: no distress Eyes: normal inspection, PERLL Respiratory: chest non tender, clear to auscultation, normal breath sounds, no respiratory distress, no accessory muscle use Cardiac: regular rate and rhythm, no rub or gallop, no murmur, no edema, no jvd GI/: active bowel sounds, no abd pain or tenderness, soft, non distended Extremities: normal range of motion, normal strength, non tender Neuro/Psych: alert and oriented x 3, normal mood and affect Skin: normal color, dry Results & Data Results & Data ([facility]) Vital Signs (Past 12 Hours) Vital Signs Temp Pulse Resp BP Pulse Ox 11/02/19 10:44 92 11/02/19 07:23 36.5 C 73 18 121/68 92 11/02/19 04:01 36.5 C 82 14 130/77 93 PG Care Time/CCT Total # of Minutes Spent Total Time Spent with Patient: Total time spent is greater than 50% in coordination of care (as documented) at patient's floor/unit and/or counseling patient: Coding Level of Care Code 62735 Subseq Hosp Care Lvl 2 Diagnoses Left knee DJD M17.12 CHF (congestive heart failure) I50.9 Hypertension I10 Hyperlipidemia E78.5 Hypothyroidism E03.9 Diabetes E11.9 COPD (chronic obstructive pulmonary disease) J44.9 GERD (gastroesophageal reflux disease) K21.9 Sleep apnea G47.30 Obesity (BMI 30-39.9) E66.9
--- NOTE | 2019-11-02 15:20 | Pharmacy Report ---
Pharmacy Glycemic Short Note 2 - Date of Service November 02, 2019 - Glycemic Short BSG Results (Last 24 hours): 11/01/19 11/01/19 11/01/19 17:04 21:10 23:36 Glucose POC Glucose 139 H 173 H 134 H 11/02/19 11/02/19 11/02/19 04:07 05:31 08:15 Glucose 136 H POC Glucose 128 H 163 H 11/02/19 12:35 Glucose POC Glucose 108 H OUTPATIENT ANTIDIABETIC REGIMEN: * metformin 500 mg PO BID * linagliptin 5 mg PO qAM * A1c = 7% (09/25/19) ASSESSMENT: 11/01 * Patient received total of 10 units of insulin yesterday, all of which were basal insulin * Fasting BSG 136 mg/dl- continue to hold basal * Added home metformin on this AM, renal function stable * Remove CR with dinner PLAN FOR INPATIENT GLYCEMIC CONTROL: * Hold outpatient oral diabetes medications - restart metformin 11/01 * Basal insulin * hold * Bolus insulin * NovoLog per scale ACHS or Q6hrs while NPO * Goal Range: Low 110 mg/dL - High 140 mg/dL * Correction Factor: 30 mg/dL/unit * Nutritional / Prandial insulin per carb ratio of 1 unit per -- grams CHO consumed PLAN FOR DISCHARGE: * A1c of 7% is acceptable * Recommend continuation of home regimen on discharge (metformin + linagliptin) * may consider titrating metformin dose to goal of 1000 mg PO BID * increase by 500 mg per week
[2019-11-02 21:26] VITALS: O2SAT 93
[2019-11-02] MEDS: TRIAMCINOLONE ACET NASAL SPRAY 10.8ML BTL NAE SCH (21:27)
[2019-11-02] MEDS: MONTELUKAST SODIUM 10 MG TABLET PO SCH (21:31)
[2019-11-02] MEDS: SENNA 8.6 MG TAB PO SCH (21:31)
[2019-11-03] MEDS: KETOROLAC TROMETHAMINE 15 MG/ML VIAL IV SCH ×2 (05:07→09:14)
[2019-11-03] MEDS: ACETAMINOPHEN 500 MG TAB PO SCH (05:07)
[2019-11-03] MEDS: LEVOTHYROXINE SODIUM 112 MCG TABLET PO SCH (05:07)
[2019-11-03 07:42] VITALS: BP 112/64; TEMP 98.1
--- NOTE | 2019-11-03 09:07 | Progress Notes ---
DATE: 11/03/2019 SUBJECTIVE: A 74-year-old gentleman postop day 2 from a left knee replacement. He is doing pretty well. He is anxious to get home today. His pain is controlled. He denies any chest pain or shortness of breath. Not feeling dizzy or lightheaded. OBJECTIVE: VITAL SIGNS: Temperature is 36.7. Vital signs stable. GENERAL: Physical examination shows a pleasant elderly male. He is sitting up in bed, looks pretty comfortable. He is awake, alert and oriented. EXTREMITIES: Examination of the left leg reveals the leg to be well aligned. There is some slight blistering on the lateral side of his leg from swelling. His incision is well approximated. No significant drainage. He can dorsiflex and plantarflex his foot appropriately. ASSESSMENT: A 74-year-old gentleman postop day 2 from a left knee replacement, doing pretty well. His pain is controlled. He is neurologically intact. PLAN: 1. DVT prophylaxis include thigh-high TEDs, SCDs, and aspirin twice a day. 2. PT/OT, weightbear as tolerated. Left total knee protocol. 3. Pain control, doing pretty well with current pain regimen. 4. Disposition: Plan to discharge to home with some home health likely later today.
[2019-11-03] MEDS: OMEGA-3 (PURIFIED FISH OIL) 1 GM CAP PO SCH (09:12)
[2019-11-03] MEDS: ASCORBIC ACID 500 MG TAB PO SCH (09:12)
[2019-11-03] MEDS: CEROVITE ADV FORMULA TAB PO SCH (09:12)
[2019-11-03] MEDS: TORSEMIDE 20 MG TAB PO SCH (09:12)
[2019-11-03] MEDS: ASPIRIN 81 MG ECTAB PO SCH (09:12)
[2019-11-03] MEDS: lisinopriL 20 MG TAB PO SCH (09:12)
[2019-11-03] MEDS: FERROUS GLUCONATE 324 MG TAB PO SCH (09:12)
[2019-11-03] MEDS: POTASSIUM CHLORIDE 10 MEQ TABCR PO SCH (09:12)
[2019-11-03] MEDS: METFORMIN HCL 500 MG TAB PO SCH (09:12)
[2019-11-03] MEDS: DOCUSATE SODIUM 100 MG CAP PO SCH (09:12)
[2019-11-03] MEDS: carvediloL 6.25 MG TAB PO SCH (09:12)
[2019-11-03] MEDS: BUDESONIDE/FORMOTEROL FUMARATE 160/4.5 60 PUFFS/INHALER INH SCH (09:13)
[2019-11-03] MEDS: NICOTINE 7 MG/24 HR TDSY TD SCH (09:13)
[2019-11-03] MEDS: INSULIN ASPART 100 UNITS/ML 3 ML PEN SC SCH (09:28)
[2019-11-03 10:03] VITALS: PULSE 71
--- NOTE | 2019-11-09 13:30 | Discharge Summary ---
Date of Service November 09, 2019 Admission HPI Per Admitting Provider Well documented in the admission H & P Admission Exam (Per Admitting) Constitutional Well documented in the admission H & P Discharge Data Consultations 11/01/19 15:20 Consult Case Management - Discharge Planning Routine 11/01/19 15:36 Consult Hospitalist Routine Procedures Performed Operation Date: 11/01/19 10:40 Actual Procedures p Left Total Knee Arthroplasty(Left) - Cleveland Umana MD Hospital Course (1) Status post total left knee replacement: This patient is a 74 y/o male admitted on 11/01/19 and underwent total knee arthroplasty. He tolerated the procedure well and there were no complications. Transferred to the PACU post op and later to the orthopedic floor for further care. He was given ancef for antibiotic prophylaxis. He was also given LEIGH stockings, SCDs, and aspirin for DVT prophylaxis. Hemoglobin, hematocrit, and vital signs were monitored during his hospital stay and remained stable. Did not require any blood transfusions. There were no complications during his hospital stay. By post op day #2 the patient was tolerating a diabetic diet, pain was reason ably controlled with oral pain medicine, and he was participating in physical therapy. On post op day #2 the patient was discharged home and set up with home health care. He was given printed discharge instructions including prescriptions for extra strength tylenol, aspirin, and tramadol. Continue physical therapy, weight bearing as tolerated. Continue LEIGH stockings. Follow up approximately 2 weeks post op or sooner if there are problems or concerns. Coding Level of Care Code None Diagnoses Status post total left knee replacement Z96.652
== END 2019-11-03 11:40 | disposition home health service (06) ==
LOC: ASU 08:22 → 3E 08:22
DX: E66.9 Obesity, unspecified; I50.9 Heart failure, unspecified; I25.10 Atherosclerotic heart disease of native coronary artery without angina pectoris; Z68.38 Body mass index [BMI] 38.0-38.9, adult; J44.9 Chronic obstructive pulmonary disease, unspecified; Z79.899 Other long term (current) drug therapy; E03.9 Hypothyroidism, unspecified; Z79.82 Long term (current) use of aspirin; E11.9 Type 2 diabetes mellitus without complications; I11.0 Hypertensive heart disease with heart failure; E78.5 Hyperlipidemia, unspecified; E78.00 Pure hypercholesterolemia, unspecified; G47.30 Sleep apnea, unspecified; M17.0 Bilateral primary osteoarthritis of knee; Z79.84 Long term (current) use of oral hypoglycemic drugs; Z87.891 Personal history of nicotine dependence

== ENCOUNTER 2020-06-05 08:42 | Inpatient (IN) ==
--- NOTE | 2020-04-22 11:13 | PAT Medication Instructions ---
Medication Instructions Date of Service April 22, 2020 Home Medications Medication Instructions Recorded miscellaneous medical supply #1 ea 11/15/19 albuterol sulfate 90 mcg/actuation aerosol inhaler 2 puffs INH QID PRN budesonide-formoterol HFA 160 mcg-4.5 mcg/actuation aerosol inhaler 2 puffs INH BID carvedilol 6.25 mg tablet 6.25 mg PO BID diclofenac sodium 1 % topical gel 2 gm TOP BID levothyroxine 112 mcg capsule 112 mcg PO QAM linagliptin 5 mg tablet 5 mg PO QAM meclizine 12.5 mg tablet 12.5 mg PO TID PRN metformin 500 mg tablet 500 mg PO BID multivit with min-folic acid-lutein 400 mcg-250 mcg chewable tablet 1 tab PO DAILY nitroglycerin 0.4 mg sublingual tablet 0.4 mg SL Q5M PRN omega-3 fatty acids 1,000 mg capsule 1,000 mg PO BID potassium chloride 10 mEq capsule,extended release 10 meq PO BID torsemide 20 mg tablet 20 mg PO QAM triamcinolone acetonide 55 mcg nasal spray aerosol 1 sprays INTNAS QPM lisinopril 20 mg PO QAM Continue as directed nitroglycerin 0.4 mg sublingual tablet 0.4 mg SL Q5M PRN (if needed) STOP taking 2 weeks before surgery omega-3 fatty acids 1,000 mg capsule 1,000 mg PO BID STOP taking 24 hours before surgery diclofenac sodium 1 % topical gel 2 gm TOP BID DO NOT take the morning of surgery linagliptin 5 mg tablet 5 mg PO QAM metformin 500 mg tablet 500 mg PO BID multivit with min-folic acid-lutein 400 mcg-250 mcg chewable tablet 1 tab PO DAILY potassium chloride 10 mEq capsule,extended release 10 meq PO BID torsemide 20 mg tablet 20 mg PO QAM lisinopril 20 mg PO QAM Take morning of surgery With a small sip of water, OTHERWISE NOTHING TO EAT OR DRINK AFTER MIDNIGHT: albuterol sulfate 90 mcg/actuation aerosol inhaler 2 puffs INH QID PRN (use if needed; please bring with you to hospital day of surgery if possible) budesonide-formoterol HFA 160 mcg-4.5 mcg/actuation aerosol inhaler 2 puffs INH BID carvedilol 6.25 mg tablet 6.25 mg PO BID levothyroxine 112 mcg capsule 112 mcg PO QAM meclizine 12.5 mg tablet 12.5 mg PO TID PRN (if needed) Take evening before surgery albuterol sulfate 90 mcg/actuation aerosol inhaler 2 puffs INH QID PRN (if needed) budesonide-formoterol HFA 160 mcg-4.5 mcg/actuation aerosol inhaler 2 puffs INH BID carvedilol 6.25 mg tablet 6.25 mg PO BID meclizine 12.5 mg tablet 12.5 mg PO TID PRN (if needed) metformin 500 mg tablet 500 mg PO BID potassium chloride 10 mEq capsule,extended release 10 meq PO BID triamcinolone acetonide 55 mcg nasal spray aerosol 1 sprays INTNAS QPM Other Notes If you have any questions please call us at [phone] or [phone] or [phone] or [phone]
[2020-05-14 17:57] LABS: Basophils # (auto) 0.02 K/uL (0-0.2); Basophils % (auto) 0.2 %; Eosinophils # (auto) 0.28 K/uL (0-0.5); Eosinophils % (auto) 3.5 %; Hemoglobin 14.3 g/dL (14.0-18.0); Immature Granulocytes # (auto) 0.02 K/uL (0.00-0.02); Immature Granulocytes % (auto) 0.2 %; Mean Corpuscular Hemoglobin 31.9 pg (25-34); Mean Corpuscular Volume 93.8 fL (80-100); Mean Platelet Volume 9.9 fL (7.4-10.4); Monocytes # (auto) 0.78 K/uL (0.11-0.59); Monocytes % (auto) 9.6 %; Neutrophils % (auto) 65.5 %; Platelet Count 193 K/uL (130-400); RDW Coefficient of Variation 13.4 % (11.5-14.5); RDW Standard Deviation 45.9 fL (36.4-46.3); Red Blood Count 4.48 M/uL (4.7-6.1)
[2020-05-14 18:06] LABS: INR 1.1 (0.9-1.1); Prothrombin Time 10.8 Seconds (9.0-12.0)
[2020-05-14 18:26] LABS: Alanine Aminotransferase 27 U/L (12-78); Albumin Globulin Ratio 0.9 (0.9-2); Albumin Level 3.3 gm/dl (3.4-5.0); Alkaline Phosphatase 64 U/L (45-117); Aspartate Aminotransferase 20 U/L (15-37); BUN Creatinine Ratio 24.6 (10-20); Bilirubin,Total 0.6 mg/dl (0.2-1); Blood Urea Nitrogen 22 mg/dl (7-18); Calcium 9.1 mg/dl (8.5-10.1); Carbon Dioxide 33 mmol/L (21-32); Chloride 107 mmol/L (98-107); Est GFR (African American) 95.2; Est GFR (Non-African American) 82.2; Globulin 3.5 gm/dl (2.5-4.0); Glucose 143 mg/dl (70-99); Potassium 3.7 mmol/L (3.5-5.1); Sodium 142 mmol/L (136-145); Total Protein 6.8 gm/dl (6.4-8.2)
[2020-05-14 18:27] LABS: C Reactive Protein < 0.29 mg/dl (0-0.29)
--- NOTE | 2020-05-16 11:44 | Anesthesiology Consultation ---
Date of Service May 16, 2020 Assessment & Plan (1) Encounter for pre-operative examination: - Per assessment on 05/16: Travel screen negative. No known COVID-19 positive contacts or current COVID-19 related symptoms. Surgeon arranging preop COVID testing. Awaiting results. - S/P Left TKA: 11/01/19: SAB (at L3/L4) x3 attempts + PNB at [facility] - Check BSG AM DOS Chart Review Chart Review: Acceptable Risk for Surgery (pending most recent cardiology office visit note) and Patient seen in Pre Admission Testing Teaching & Discussion Pre-Anesthesia Teaching/Discussion Notes: Instructed NPO after midnight before surgery,except medications with 15 cc of water. Medication instructions provide d according to the PAT guidelines. History Surgery Operation Date: 06/05/20 09:20 Proposed Procedures p Right Total Knee Arthroplasty - Cleveland Umana MD Height/Weight Height: 6 ft Weight: 132.1 kg Allergies Allergy/AdvReac Type Severity Reaction Status Date / Time No Known Allergies Allergy Verified 04/18/20 16:44 Medications Home Medications Medication Instructions Recorded Confirmed Last Taken albuterol sulfate 90 mcg/actuation 2 puffs INH QID PRN 04/26/19 04/18/20 11/01/19 06:00 aerosol inhaler budesonide-formoterol HFA 160 2 puffs INH BID 04/26/19 04/18/20 10/31/19 22:00 mcg-4.5 mcg/actuation aerosol inhaler carvedilol 6.25 mg tablet 6.25 mg PO BID 04/26/19 04/18/20 11/01/19 06:00 diclofenac sodium 1 % topical gel 2 gm TOP BID 04/26/19 04/18/20 3 Days Ago ~10/29/19 levothyroxine 112 mcg capsule 112 mcg PO QAM 04/26/19 04/18/20 11/01/19 06:00 linagliptin 5 mg tablet 5 mg PO QAM 04/26/19 04/18/20 10/31/19 06:30 meclizine 12.5 mg tablet 12.5 mg PO TID PRN 04/26/19 04/18/20 Unknown metformin 500 mg tablet 500 mg PO BID 04/26/19 04/18/20 10/31/19 18:00 multivit with min-folic 1 tab PO DAILY 04/26/19 04/18/20 10/31/19 06:00 acid-lutein 400 mcg-250 mcg chewable tablet nitroglycerin 0.4 mg sublingual 0.4 mg SL Q5M PRN 04/26/19 04/18/20 Unknown tablet omega-3 fatty acids 1,000 mg 1,000 mg PO BID 04/26/19 04/18/20 2 Weeks Ago capsule ~10/18/19 potassium chloride 10 mEq 10 meq PO BID 04/26/19 04/18/20 11/01/19 06:00 capsule,extended release torsemide 20 mg tablet 20 mg PO QAM 04/26/19 04/18/20 10/31/19 06:00 triamcinolone acetonide 55 mcg 1 sprays INTNAS QPM 04/26/19 04/18/20 10/31/19 18:00 nasal spray aerosol lisinopril 20 mg PO QAM 09/19/19 04/18/20 10/31/19 06:00 miscellaneous medical supply #1 ea 11/15/19 11/15/19 Unknown Past Medical History Medical History CAD (coronary artery disease) non-obstructive CHF (congestive heart failure) COPD (chronic obstructive pulmonary disease) stable Coronary arteriosclerosis per records Diabetes mellitus, type 2 NIDDM Hyperlipidemia Hypertension Hypothyroidism Obesity Sleep apnea BIPAP Exercise / Class Metabolic Activity III < 4 Walking/Shop/Light housework (uses cane PRN (one flight of stairs- no chest pain, occasional SOB)) Past Family History Family History Other No family history of adverse response to anesthesia Past Surgical History Surgical History History of bilateral cataract extraction History of carpal tunnel surgery History of cholecystectomy History of colonoscopy with polypectomy History of left knee replacement Left TKA: 11/01/19: SAB (at L3/L4) x3 attempts + PNB at [facility] History of sinus surgery History of tooth extraction all teeth History of umbilical hernia repair Past Anesthesia History No Hx of Anesthesia Complications and No Family Hx of Anesthesia Complications History of PONV No Hx of PONV and Hx of Motion Sickness Social History Smoking Status: Never smoker tobacco type: smokeless tobacco Do You Dip or Chew Tobacco: Yes (occasional chew tobacco (advised NPO AM DOS)) Hx Alcohol Use: No (quit 20yrs ago) Hx Substance Use: No substance use type: does not use Review of Systems Chronic, cough after waking in the morning r/t allergies, no new changes. Patient denies chest pain, shortness of breath, wheezing, palpitations. Physical Exam Vital Signs VITALS BP 151/80 P 86 TEMP 98.1 SP02 94%RA RESP 22 PHYSICAL Full neck and c-spine range of motion. Full TMJ range of motion. TMD 3 finger breaths (Difficult to palpate) Mallampati Score 1 Dentition: full dentures upper/lower Lungs: course breath sounds Cardiac: regular rate and rhythm, distant heart sounds Spine: normal Carotid arteries: negative bruit Extremities: no edema Thick neck Testing Laboratory Results 05/14/20 11:31 05/14/20 11:31 PT 10.8 Seconds (9.0-12.0) 05/14/20 11:31 INR 1.1 (0.9-1.1) 05/14/20 11:31 APTT 23.3 Seconds (21.0-31.0) 05/16/20 12:05 Hemoglobin A1c 7.0 % (4.5-5.6) H 05/16/20 12:05 Blood Type O Positive 05/14/20 11:33 Antibody Screen NEGATIVE 05/14/20 11:33 Electrocardiogram Date: 12/12/20 Findings: + NSR @ (78) Chest X-Ray Date: 09/25/19 FINDINGS: Cardiac silhouette is enlarged. There is mild mediastinal widening. No pneumothorax, large pleural effusion, overt pulmonary edema or lobar airspace consolidation typical for pneumonia. Mild linear subsegmental bibasilar d ensities are noted along with blunting of the posterior costophrenic angles. Degenerative changes of the shoulders and spine. IMPRESSION: Cardiomegaly without acute process. Mild linear subsegmental bibasilar atelectasis. Echocardiogram Date: 12/01/18 LVEF 68%. Mildly increased concentric LV wall thickness. Mild ADARSH. No r egional wall motion abnormality. Mild aortic valve sclerosis. Mildly enlarged proximal ascending thoracic aorta. Grade 1 diastolic dysfunction. Stress Test Date: 09/30/14 Type: DSE DSE is normal without resting LV wall motion abnormalities or inducible ischemia. 96% MPHR. No significant arrhythmias. LVEF 60%. Mildly increased concentric LV wall thickness. ADARSH. No significant valvular disease. Borderline enlarged aortic root.
[2020-05-16 12:38] LABS: Partial Thromboplastin Ratio 0.9; Partial Thromboplastin Time 23.3 Seconds (21.0-31.0)
[2020-05-16 13:04] LABS: Estimated Average Glucose 154 mg/dl
--- NOTE | 2020-05-31 21:55 | History and Physical Report ---
DATE OF ADMISSION: 06/05/2020 CHIEF COMPLAINT: Persistent right knee pain and discomfort. HISTORY OF PRESENT ILLNESS: The patient is a 75-year-old gentleman who presents for surgical treatment of his right knee. He is now about 7 months out from a left knee replacement, doing pretty well. He is continued to be bothered and limited by right knee pain and discomfort. He has been through extensive conservative treatment in the past. Shots only help him for about a week. He describes global pain. It is increased with weightbearing. He uses a cane to get around. He would like to have his right knee fixed. PAST MEDICAL HISTORY: Significant for, 1. Hypertension. 2. Elevated cholesterol. 3. Asthma. 4. COPD. 5. Sleep apnea. 6. Diabetes. 7. Mild obesity. 8. Cardiomyopathy. PAST SURGICAL HISTORY: Include, 1. Herniorrhaphy. 2. Cholecystectomy. 3. Left knee replacement done on 11/01/2019. ALLERGIES: None. CURRENT MEDICATIONS: Include, 1. Tylenol. 2. Albuterol. 3. Aspirin. 4. Symbicort. 5. Carvedilol. 6. Diclofenac topical cream. 7. Gabapentin. 8. Isosorbide. 9. Levothyroxine. 10. Tradjenta. 11. Lisinopril. 12. Meclizine. 13. Metformin. 14. Multivitamin. 15. Nitroglycerin. 16. Fish oil. 17. Potassium chloride. 18. Torsemide. 19. Triamcinolone nasal spray. SOCIAL HISTORY: A 74-year-old male. He is . He lives in [place]. He does not smoke. FAMILY HISTORY: Noncontributory. REVIEW OF SYSTEMS: Significant for multiple comorbidities as described above. He is diabetic. His A1c is about 7. He has got some underlying heart disease, followed by [facility] in [place]. No history of DVT or PE. No known bleeding problems. PHYSICAL EXAMINATION: GENERAL: Reveals a pleasant elderly male. He looks to be in reasonable health. HEENT: Benign. NECK: Supple, no lymphadenopathy. LUNGS: Clear to auscultation. HEART: Has a regular rate and rhythm. ABDOMEN: Soft, nontender, nondistended. EXTREMITIES: Grossly neurovascularly intact except as follows: Examination of both knees reveal patient ambulates with use of a cane. Examination of the right knee reveals varus alignment to his knee. He is tender over the medial joint line. Small knee effusion. Range of motion is about 10 degrees short of full extension to 120 degrees of flexion. There is no instability. No pain with hip motion. Examination of the left knee reveals a well-healed incision, minimal swelling. Range of motion is near full extension to 120 degrees of flexion. Good straight leg raise. X-RAYS: X-rays of the right knee reviewed. It shows advanced right knee DJD. He has got near complete loss of his medial joint space. He has got osteophytes in all 3 compartments. He has got chondrocalcinosis. The left knee replacement looks to be in good position without signs of problems. ASSESSMENT: A 75-year-old gentleman with multiple medical comorbidities including diabetes, heart disease, chronic obstructive pulmonary disease, elevated cholesterol, hypertension, and obesity 7 months out from a left knee replacement with a right knee degenerative joint disease. He is happy with his left knee and would like to have his right knee replaced. He does have underlying spinal stenosis as well. PLAN: We are going to take him to the operating room and do a right total knee replacement. The risks and benefits of this procedure were explained to the patient including, but not limited to, DVT, PE, , infection, neurological injury, vascular injury, bleeding problem, pain, limited range of motion, stiffness, failure to relieve symptoms, incomplete relief of symptoms, need for further surgery in the future, fracture, leg length inequality, nerve palsy, etc. The patient understands and desires to proceed. Informed consent was obtained. I did explain to him that this is not going to help some of his leg pain associated with his spinal stenosis. We did talk to him about holding his lisinopril and metformin the morning of surgery and taking his Carvedilol. He will bring his CPAP machine to the hospital. He is planning to be discharged to home using [facility] home health program.
[~2020-06-05 08:42] MED LIST changes: -BUPIVACAINE/EPINEPHRINE 0.25% 1:200,000 30 ML VIAL ONE; -CEFAZOLIN 3000MG 72.5 ML IV SCH; -DEXAMETHASONE SOD INJ 4 MG/ML VIAL ONE; +LR 60ML/HR IV SCH; +TRANEXAMIC ACID 1,000 MG **IV Intra-op IV SCH
--- NOTE | 2020-06-05 09:02 | History & Physical Bridge Note ---
Date of Service June 05, 2020 History & Physical Bridge Note I have examined the patient, reviewed the History & Physical and in the interval since the performance of the History & Physical I have noted the following changes of clinical significance: no changes noted
[2020-06-05] MEDS ORDERED: MIDAZOLAM HCL 1 MG/ML 2ML VIAL ONE (09:34)
[2020-06-05] MEDS ORDERED: fentaNYL citrate 100 MCG/2 ML VIAL ONE (09:34)
[2020-06-05] MEDS ORDERED: PROPOFOL IV EMULSION 10 MG/ML 20 ML VIAL IV ONE (10:08)
[2020-06-05] MEDS ORDERED: LIDOCAINE HCL 2% 2 ML VIAL/AMP(20MG/ML) INFIL ONE (10:08)
[2020-06-05] MEDS ORDERED: ePHEDrine sulfate 50 MG/ML AMP IV PRN (10:18)
[2020-06-05] MEDS ORDERED: ATROPINE SULFATE 0.1 MG/ML 10ML SYR IV PRN (10:18)
[2020-06-05] MEDS ORDERED: fentaNYL citrate 100 MCG/2 ML VIAL IV PRN (10:18)
[2020-06-05] MEDS ORDERED: ONDANSETRON INJ 2 MG/ML 2 ML VIAL IV PRN ×2 (10:18→15:17)
[2020-06-05] MEDS ORDERED: BACITRACIN INJ 50,000 UNIT VIAL ONE (10:52)
[2020-06-05] MEDS ORDERED: BUPIVACAINE 0.25% 30 ML VIAL ONE (10:52)
[2020-06-05] MEDS ORDERED: BUPIVACAINE LIPOSOME 1.3% 266 MG/20 ML VIAL ONE (10:52)
[2020-06-05] MEDS ORDERED: EPINEPHrine INJ 1 MG/ML AMP ONE (10:52)
[2020-06-05] MEDS ORDERED: SODIUM CHLORIDE 0.9% PF 50 ML VIAL ONE (10:52)
[2020-06-05] MEDS ORDERED: PHENYLEPHRINE 100MCG/ML 5ML SYR ONE (11:17)
[2020-06-05] MEDS ORDERED: PHENYLEPHRINE HCL 10 MG/ML VIAL ONE (11:52)
[2020-06-05] MEDS ORDERED: ePHEDrine sulfate 50 MG/ML SYR ONE (11:52)
--- NOTE | 2020-06-05 13:02 | Post Operative Brief Note ---
PG Immediate Post Op with CF Date of Surgery June 05, 2020 Pre & Post Diagnosis Operation Date: 06/05/20 10:55 Pre-Op Diagnosis: Right Knee Advanced Degenerative Joint Disease Post-Op Diagnosis: Right Knee Advanced Degenerative Joint Disease I identified the patient and participated in the time-out.: Yes Procedure Operation Date: 06/05/20 10:55 <Right cemented posterior stabilized total knee arthroplasty. Surgeon Cleveland Umana MD Tin Pot Operator NICHOLAS Chun Estimated Blood Loss 50 Findings Consistent with Post-Op Diagnosis Fluids 1200 cc Specimens Specimen Description: A. Right Knee Bone and Tissue Drains Mendiola Catheter Anesthesia Type Spinal MAC Complications none Disposition Accompanied Patient To Recovery: No Disposition: Recovery Room
--- NOTE | 2020-06-05 13:32 | XRay Report ---
RIGHT KNEE 2 VIEWS History: Right total knee arthroplasty. Degenerative arthritis. Postop. FINDINGS: The patient is status post a right total knee arthroplasty. The hardware is intact. No frac ture or dislocation. Skin deonna are in place. IMPRESSION: Right total knee arthroplasty. No evidence for hardware complication. ACT 112: Negative or not required by law. Electronically signed by: Viktor Pelayo M.D. 06/05/2020 1:31 PM
--- NOTE | 2020-06-05 14:23 | Anesthesiology Progress Note ---
Date of Service June 05, 2020 Anesthesia Post Procedure Vital Signs Vital Signs: Temp Pulse Pulse Pulse Resp BP BP 06/05/20 14:15 82 26 H 117/66 06/05/20 14:05 85 24 120/76 06/05/20 13:55 86 24 105/61 06/05/20 13:45 87 26 H 112/58 L 06/05/20 13:35 89 25 H 104/55 L 06/05/20 13:28 93 H 25 H 06/05/20 13:25 91 H 25 H 95/51 L 06/05/20 13:15 95 H 26 H 95/44 L 06/05/20 13:10 97 H 20 105/54 L 06/05/20 13:07 97.0 F L 97 H 12 131/67 06/05/20 09:33 98.1 F 79 20 151/86 H Pulse Ox 06/05/20 14:15 100 06/05/20 14:05 97 06/05/20 13:55 97 06/05/20 13:45 98 06/05/20 13:35 96 06/05/20 13:28 96 06/05/20 13:25 95 06/05/20 13:15 94 06/05/20 13:10 91 06/05/20 13:07 93 06/05/20 09:33 93 Pain Intensity Left Knee: Pain Intensity: 0 Transfer of Care Handoff Completed per policy Notes Mental Status: alert / awake / arousable and participated in evaluation Patient Amnestic to Procedure: Yes Nausea / Vomiting: adequately controlled Pain: adequately controlled Airway Patency, RR, SpO2: stable & adequate BP & HR: stable & adequate Hydration State: stable & adequate Neuraxial Anesthesia: was administered and sensory block is resolving Anesthetic Complications: no major complications apparent and Pt Satisfied with anesthetic care
[2020-06-05] MEDS ORDERED: GLUCOSE 40% GEL 15 GM TUBE PO PRN (15:17)
[2020-06-05] MEDS ORDERED: NITROGLYCERIN SL 0.4 MG/TAB TAB SL PRN (15:17)
[2020-06-05] MEDS ORDERED: DEXTROSE 50% 50 ML SYRINGE IV PRN (15:17)
[2020-06-05] MEDS ORDERED: MECLIZINE 12.5 MG TAB PO PRN (15:17)
[2020-06-05] MEDS ORDERED: METOCLOPRAMIDE HCL INJ 5 MG/ML 2 ML VIAL IV PRN (15:17)
[2020-06-05] MEDS ORDERED: GLUCOSE 10 TABS/TUBE PO PRN (15:17)
[2020-06-05] MEDS ORDERED: HYDROmorphone INJ 0.5 MG/0.5 ML SYR IV PRN (15:17)
[2020-06-05] MEDS ORDERED: NALOXONE HCL 0.4 MG/1 ML VIAL/CARP IV PRN (15:17)
[2020-06-05] MEDS ORDERED: ALUMINUM/MAGNESIUM SUSP 30 ML UDC PO PRN (15:17)
[2020-06-05] MEDS ORDERED: GLUCAGON FOR INJ 1 MG VIAL SQ PRN (15:17)
[2020-06-05] MEDS ORDERED: bisacodyL 10 MG SUPP PR PRN (15:17)
[2020-06-05] MEDS ORDERED: MAGNESIUM HYDROXIDE SUSP 30 ML UDC PO PRN (15:17)
[2020-06-05] MEDS ORDERED: TAMSULOSIN HCL 0.4 MG CAP PO PRN (15:17)
[2020-06-05] MEDS ORDERED: CARBOHYDRATES FOR HYPOGLYCEMIA PO PRN (15:17)
[2020-06-05] MEDS ORDERED: ALBUTEROL HFA 8 GM INHALER INH PRN (15:21)
[2020-06-05] MEDS ORDERED: PHARMACY GLYCEMIC MGMT CONSULT PRN (15:35)
[2020-06-05] MEDS: SODIUM CHLORIDE 0.9% 1000ML 1,000 ML IV SCH (15:37)
[2020-06-05] MEDS: KETOROLAC TROMETHAMINE 15 MG/ML VIAL IV SCH ×2 (15:39→21:57)
[2020-06-05] MEDS: ACETAMINOPHEN 500 MG TAB PO SCH ×2 (15:40→21:57)
--- NOTE | 2020-06-05 16:01 | Pharmacy Report ---
Pharmacy Glycemic Short Note 2 - Date of Service June 05, 2020 - Glycemic Short BSG Results (Last 24 hours): 06/05/20 06/05/20 09:15 13:16 POC Glucose 138 H 149 H OUTPATIENT ANTIDIABETIC REGIMEN: * Metformin 500 mg PO BIDM * Tradjenta 5 mg PO AM * HbA1c = 7.0% (05/16/20) ASSESSMENT: * 75 yo M admitted today following a right total knee arthroplasty. Pharmacy is consulted for inpatient glycemic control. * Preoperative BSG was 138 mg/dL. Postoperative BSG was 149 mg/dL. Patient did not receive perioperative steroids to my knowledge. * Will start the patient on Novolog based on a weight and stress of 2. This may be aggressive given his weight so may need to loosen. Will trend BSGs and add a small basal dose this evening if BSG is greater than 180 mg/dL. * Likely can resume Metformin prior to discharge if BSGs remain stable. PLAN FOR INPATIENT GLYCEMIC CONTROL: * Hold outpatient oral diabetes medications * Basal insulin * Lantus 10 units for BSG > 180 mg/dL this evening * Bolus insulin * NovoLog per scale ACHS or Q6hrs while NPO * Goal Range: Low 110 mg/dL - High 140 mg/dL * Correction Factor: 20 mg/dL/unit * Nutritional / Prandial insulin per carb ratio of 1 unit per 6 grams CHO consumed PLAN FOR DISCHARGE: * HbA1c is 7.0% from earlier this month. This is at goal given patient's age and comorbidities. * Recommend continuing outpatient regimen of Tradjenta 5 mg PO AM and Metformin 500 mg PO BIDM upon discharge.
[2020-06-05] MEDS: ASCORBIC ACID 500 MG TAB PO SCH (16:20)
[2020-06-05] MEDS: INSULIN ASPART 100 UNITS/ML 3 ML PEN SC SCH ×2 (17:11→20:45)
--- NOTE | 2020-06-05 17:36 | Operative Report ---
Post Operative Report Pre & Post Diagnosis Operation Date: 06/05/20 10:55 Pre-Op Diagnosis: Right Knee Advanced Degenerative Joint Disease Post-Op Diagnosis: Right Knee Advanced Degenerative Joint Disease I identified the patient and participated in the time-out.: Yes Procedure Operation Date: 06/05/20 10:55 Actual Procedures p Right Total Knee Arthroplasty - Cleveland Umana MD Surgeon Cleveland Umana MD Senior Software Developer NICHOLAS Chun Estimated Blood Loss 50 Findings Consistent with Post-Op Diagnosis Operative findings revealed advanced right knee DJD. Extensive grade 4 [id number] disease primarily the medial and patellofemoral compartments. Some spotty lateral sided changes. Large knee joint effusion. Osteophytes primarily in the medial compartment. Fluids 1200 cc. Specimens Right knee sent for pathology. Drains None. Anesthesia Type Spinal MAC Complications none Disposition Accompanied Patient To Recovery: No Disposition: Recovery Room Indications Patient is 75-year-old gentleman said a long history of bilateral knee pain discomfort this gradually progressed over time. He failed all conservative measures. He underwent a left total knee replacement about 6 months ago. He is recovered from mass and elected to proceed with right total knee arthroplasty. Description of Procedure Operative implants consist of: 1. Biomet Vanguard size 72.5 right posterior stabilized femoral component. 2. Biomet size 79 tibial tray. 3. 10 mm posterior stabilized polyethylene insert. 4. 34 x 8 and half all polypatella. The patient was taken to the operating identified and placed on the operating table supine position but all contractors were properly padded. IV antibiotics tried by anesthesia team. A spinal anesthetic and abductor canal block had provided holding area. Mendiola catheter was placed in sterile fashion. Right thigh turn was then placed in the right lower extremities and prepped and draped in usual sterile fashion. The right leg was elevated exsanguinated with use of an Esmarch and a tourniquet was placed at 300 mmHg. An anterior approach to the right knee was then performed to longitudinal incision centered over the patella. Sharp dissection was carried through subcutaneous tissue down the extensor mechanism. A medial parapatellar arthrotomy incision was made. Some subperiosteal dissection was carried out medially. The fat pad was resected from each patella tendon. Lateral patellofemoral ligament was released. Patella was subluxated laterally and the knee was flexed. The osteophytes were taken off distal femur. The ACL and PCL were then released from the distal femur the tibia subluxated anteriorly. The external tibial alignment jig was then placed in the interface the tibia and adjusted 14 mm medially. Proximal tibial cut was made to remove about a millimeter or 2 of bone from most efficient aspect medial tibial plateau. Tibia was incised with a size 79. Attention drawn the femur. The distal femur was entered with a sharp drop with intramedullary canal was suction. A right 6 degree valgus cutting guide was placed. The distal femoral cutting block was pinned in place but distal femoral cut was made to take an additional 3 mm of bone off distal femur. The femur was then sized to a size 72.5. The AP cutting block was pinned parallel to the epicondylar axis which was 4 degrees of external rotation. The anterior cut, anterior chamfer, posterior cut, posterior chamfer cuts were made. The box cutting guide was placed in just slight lateral and the box cut was made. The knee was flexed. The remnants of the medial lateral menisci were excised but the osteophytes were taken off the posterior aspect of the femur. A trial femoral component was placed. The tibial tray was pinned in maximum external rotation and the drill and stem punch used to create defect in proximal tibia for the tibial tray. The knee was then trialed and the 10 mm insert fit most appropriately. Attention drawn the patella. The patella was cleaned of all soft tissues. Patella thickness measured 26 mm in thickness was cut down to 16. Was sized to a size 34 patella. The lug holes were drilled for the 34 patella. The lateral osteophyte is moved. Patella button was placed. Knee was taken through range of motion patella tracked nicely with no thumbs test. Attention drawn to placing the permanent components. All trial components were removed. Bone plug was placed in the distal femur limit blood loss. A double batch of Palacos G cement was mixed. A Biomet Vanguard size 72.5 right posterior stabilized femoral component, size 79 tibial tray, a 10 mm posterior stabilized polyethylene insert, and a 34 x 8 and half all polypatella then cemented in place. The knee was brought out in full extension until cement hardened. Final cement check was then performed. The pericapsular tissues were injected with total 100 cc of combination of 20 cc of Exparel, 30 cc normal saline, 50 cc of quarter percent Marcaine with epinephrine. Patient did receive 1 g tranexamic acid per the chart was let down for final turn time 67 minutes. Hemostasis assured use electrocautery. The extensor neck was then closed with combination 1 PDS suture #1 Vicryl suture in [id number] fashion. The extensor mechanism checked found to be intact and the subcutaneous tissue then closed with 2 Dexon suture in a buried interrupted fashion skin was closed skin deonna. The leg was then cleaned and dried and sterile dressing was Xeroform, 4 x 4's, sterile cast padding, Rudy bandage were applied. Patient then transferred to the recovery room in stable condition. Patient tolerated the procedure well and there were no complications. Teofilo Chun, my physician assistant speech language pathologist, was present for the entire procedure. His assistance was essential and required for appropriate patient positioning, prepping and draping, surgical exposure, performing the technical details of the operation, placement the implants, closure of the wound, and placement of the sterile bandage. I attest to the content of the Intraoperative Record and any orders documented therein. Any exceptions are noted below.
[2020-06-05] MEDS: ceFAZolin 2000MG 2,000 MG/15 ML SYR IV SCH (18:51)
[2020-06-05] MEDS ORDERED: TRANEXAMIC ACID / 0.7% NACL 1,000 MG/100 ML BAG IV SCH (19:00)
[2020-06-05] MEDS: carvediloL 6.25 MG TAB PO SCH (20:42)
[2020-06-05] MEDS: POTASSIUM CHLORIDE 10 MEQ TABCR PO SCH (20:42)
[2020-06-05] MEDS: TRIAMCINOLONE ACET NASAL SPRAY 10.8ML BTL SCH (20:42)
[2020-06-05] MEDS: DOCUSATE SODIUM 100 MG CAP PO SCH (20:42)
[2020-06-05] MEDS: ASPIRIN 81 MG ECTAB PO SCH (20:42)
[2020-06-05] MEDS: SENNA 8.6 MG TAB PO SCH (20:43)
[2020-06-05] MEDS: OMEGA-3 (PURIFIED FISH OIL) 1 GM CAP PO SCH (20:43)
[2020-06-05] MEDS: traMADol HCL 50 MG TABLET PO PRN (21:59)
[2020-06-06] MEDS: SODIUM CHLORIDE 0.9% 1000ML 1,000 ML IV SCH (00:45)
[2020-06-06] MEDS: KETOROLAC TROMETHAMINE 15 MG/ML VIAL IV SCH ×4 (03:00→21:26)
[2020-06-06] MEDS: ceFAZolin 2000MG 2,000 MG/15 ML SYR IV SCH (03:00)
[2020-06-06 05:46] LABS: Hematocrit (blood only) 36.8 % (42-52); Hemoglobin 12.4 g/dL (14.0-18.0); Mean Corpuscular Hemoglobin 32.4 pg (25-34); Mean Corpuscular Hgb Conc 33.7 g/dL (32-36); Mean Corpuscular Volume 96.1 fL (80-100); Mean Platelet Volume 9.6 fL (7.4-10.4); Platelet Count 143 K/uL (130-400); RDW Coefficient of Variation 13.2 % (11.5-14.5); Red Blood Count 3.83 M/uL (4.7-6.1); White Blood Count 9.17 K/uL (4.8-10.8)
[2020-06-06] MEDS: ACETAMINOPHEN 500 MG TAB PO SCH ×3 (06:00→21:23)
[2020-06-06] MEDS: LEVOTHYROXINE SODIUM 112 MCG TABLET PO SCH (06:00)
[2020-06-06] MEDS: traMADol HCL 50 MG TABLET PO PRN ×2 (06:02→16:00)
[2020-06-06 06:28] LABS: BUN Creatinine Ratio 20.1 (10-20); Calcium 7.7 mg/dl (8.5-10.1); Creatinine Clr Calc Pharmacy 91.1 ml/min; Est GFR (African American) 87.5; Est GFR (Non-African American) 75.5; Potassium 3.9 mmol/L (3.5-5.1)
[2020-06-06] MEDS: POTASSIUM CHLORIDE 10 MEQ TABCR PO SCH ×2 (07:39→20:31)
[2020-06-06] MEDS: lisinopril 20 MG TAB PO SCH (07:39)
[2020-06-06] MEDS: carvediloL 6.25 MG TAB PO SCH ×2 (07:39→20:30)
[2020-06-06] MEDS: FLUTICASONE/VILANTEROL 100/25MCG 14 PUFFS/INHALER INH SCH (07:39)
[2020-06-06] MEDS: DOCUSATE SODIUM 100 MG CAP PO SCH ×2 (07:40→20:30)
[2020-06-06] MEDS: ASPIRIN 81 MG ECTAB PO SCH ×2 (07:40→20:31)
[2020-06-06] MEDS: ASCORBIC ACID 500 MG TAB PO SCH ×2 (07:40→15:59)
[2020-06-06] MEDS: TORSEMIDE 20 MG TAB PO SCH (07:40)
[2020-06-06] MEDS: MULTIVITAMIN TAB PO SCH (07:40)
[2020-06-06] MEDS: OMEGA-3 (PURIFIED FISH OIL) 1 GM CAP PO SCH ×2 (07:40→20:32)
--- NOTE | 2020-06-06 08:26 | Progress Notes ---
DATE: 06/06/2020 SUBJECTIVE: A 75-year-old gentleman postop day 1 from a right knee replacement. He is doing okay. Quite a bit of pain in his knee and his left hand overnight. The pain in the hand is in IV site. Denies any chest pain or shortness of breath. Not feeling dizzy or lightheaded. OBJECTIVE: VITAL SIGNS: Temperature 36.3. Vital signs are stable. GENERAL: Shows a pleasant elderly male. He is lying in bed this morning and looks reasonably comfortable. EXTREMITIES: Examination of the right leg reveals the leg to be well aligned. Dressing is clean, dry, and intact. He can dorsiflex and plantarflex his foot appropriately. He is neurologically intact. LABORATORY DATA: Hemoglobin 12.4. Hematocrit 36.8. Electrolytes are stable. ASSESSMENT: A 75-year-old gentleman postoperative day 1 from a right knee replacement, doing reasonably well. Pain is controlled. He is neurologically intact. PLAN: 1. DVT prophylaxis including thigh-high TEDs, SCDs, and aspirin twice a day. 2. PT/OT. Weight bear as tolerated. Right total knee protocol. 3. Pain control, doing okay with current pain regimen. 4. Disposition: He is planning to be discharged to home with some home health once adequately recovered and medically stable.
[2020-06-06] MEDS: INSULIN ASPART 100 UNITS/ML 3 ML PEN SC SCH ×4 (08:34→20:33)
[2020-06-06] MEDS ORDERED: MULTIVITAMIN TAB PO SCH (09:00)
[2020-06-06] MEDS ORDERED: NON-FORMULARY MEDICATION (Linagliptin [Tradjenta] 5 mg tablet) PO SCH (09:00)
--- NOTE | 2020-06-06 10:08 | Pharmacy Report ---
Pharmacy Glycemic Short Note 2 - Date of Service June 06, 2020 - Glycemic Short BSG Results (Last 24 hours): 06/05/20 06/05/20 06/05/20 09:15 13:16 16:47 Glucose POC Glucose 138 H 149 H 139 H 06/05/20 06/06/20 06/06/20 20:27 05:23 07:54 Glucose 152 H POC Glucose 110 H 146 H OUTPATIENT ANTIDIABETIC REGIMEN: * Metformin 500 mg PO BIDM * Tradjenta 5 mg PO AM * HbA1c = 7.0% (05/16/20) ASSESSMENT: 06/06: * Pt received total 7 units of insulin yesterday all of which was bolus. * Fasting BSG was 146 mg/dl this AM. Pt does not seem to need any basal insulin. * As long as pt is eating well, oral Metformin can be resumed this evening with dinner. * Will loosen Novolog parameters upon resumption of Metformin. 06/05: * 75 yo M admitted today following a right total knee arthroplasty. Pharmacy is consulted for inpatient glycemic control. * Preoperative BSG was 138 mg/dL. Postoperative BSG was 149 mg/dL. Patient did not receive perioperative steroids to my knowledge. * Will start the patient on Novolog based on a weight and stress of 2. This may be aggressive given his weight so may need to loosen. Will trend BSGs and add a small basal dose this evening if BSG is greater than 180 mg/dL. * Likely can resume Metformin prior to discharge if BSGs remain stable. PLAN FOR INPATIENT GLYCEMIC CONTROL: * Resumed Metformin 500 mg PO BID with dinner today. * Basal insulin * none * Bolus insulin: loosen CF, remove CR with dinner * NovoLog per scale ACHS or Q6hrs while NPO * Goal Range: Low 110 mg/dL - High 140 mg/dL * Correction Factor: 30 mg/dL/unit * Nutritional / Prandial insulin per carb ratio of 1 unit per __ grams CHO consumed PLAN FOR DISCHARGE: * HbA1c is 7.0% from earlier this month. This is at goal given patient's age and comorbidities. * Recommend continuing outpatient regimen of Tradjenta 5 mg PO AM and Metformin 500 mg PO BIDM upon discharge.
[2020-06-06] MEDS: metFORMIN HCL 500 MG TAB PO SCH (15:59)
[2020-06-06] MEDS: TRIAMCINOLONE ACET NASAL SPRAY 10.8ML BTL SCH (20:31)
[2020-06-06] MEDS: SENNA 8.6 MG TAB PO SCH (20:32)
[2020-06-07] MEDS: KETOROLAC TROMETHAMINE 15 MG/ML VIAL IV SCH ×2 (03:52→08:26)
[2020-06-07] MEDS: ACETAMINOPHEN 500 MG TAB PO SCH ×3 (05:55→22:46)
[2020-06-07] MEDS: LEVOTHYROXINE SODIUM 112 MCG TABLET PO SCH (05:56)
[2020-06-07] MEDS: traMADol HCL 50 MG TABLET PO PRN ×2 (05:59→12:47)
[2020-06-07] MEDS: lisinopril 20 MG TAB PO SCH (07:22)
[2020-06-07] MEDS: carvediloL 6.25 MG TAB PO SCH ×2 (07:22→20:36)
[2020-06-07] MEDS: MULTIVITAMIN TAB PO SCH (07:22)
[2020-06-07] MEDS: FLUTICASONE/VILANTEROL 100/25MCG 14 PUFFS/INHALER INH SCH (07:22)
[2020-06-07] MEDS: metFORMIN HCL 500 MG TAB PO SCH ×2 (07:22→17:35)
[2020-06-07] MEDS: ASCORBIC ACID 500 MG TAB PO SCH ×2 (07:22→17:36)
[2020-06-07] MEDS: ASPIRIN 81 MG ECTAB PO SCH ×2 (07:22→20:37)
[2020-06-07] MEDS: TORSEMIDE 20 MG TAB PO SCH (07:22)
[2020-06-07] MEDS: DOCUSATE SODIUM 100 MG CAP PO SCH ×2 (07:23→20:36)
[2020-06-07] MEDS: OMEGA-3 (PURIFIED FISH OIL) 1 GM CAP PO SCH ×2 (07:23→20:38)
[2020-06-07] MEDS: POTASSIUM CHLORIDE 10 MEQ TABCR PO SCH ×2 (07:23→20:37)
[2020-06-07] MEDS: INSULIN ASPART 100 UNITS/ML 3 ML PEN SC SCH ×4 (08:25→20:40)
--- NOTE | 2020-06-07 08:48 | Progress Notes ---
DATE: 06/07/2020 SUBJECTIVE: A 75-year-old gentleman postop day 2 from a right knee replacement. He is doing pretty well this morning. Pain is controlled. No chest pain or shortness of breath. Not feeling dizzy or lightheaded. OBJECTIVE: VITAL SIGNS: Temperature 36.7. Vital signs stable. GENERAL: Shows a pleasant elderly male. He is lying in bed, working on a crossw[employer]ide[employer] puzzle this morning. EXTREMITIES: Examination of the right leg reveals the dressing to be clean, dry and intact. Leg is well aligned. He can dorsiflex and plantarflex his foot appropriately. He has little difficulty doing a straight leg raise. ASSESSMENT: A 75-year-old gentleman postop day 2 from right knee replacement, doing reasonably well. Pain is controlled. He is neurologically intact. PLAN: 1. DVT prophylaxis including thigh-high TEDs, SCDs, and aspirin twice a day. 2. PT/OT. Weight bear as tolerated. Right total knee protocol. 3. Pain control, doing okay with current pain regimen. 4. Disposition: Plan to discharge to home with some home health likely later today if therapy goes okay.
--- NOTE | 2020-06-07 10:18 | Pharmacy Report ---
Pharmacy Glycemic Sign Off Nt - Date of Service June 07, 2020 - Assessment & Plan ASSESSMENT: * Pharmacy was consulted by Dr. Umana on 06/05/20 for glycemic control and to write orders per [facility] inpatient glycemic control protocol. * Major changes made by pharmacy to antidiabetic regimen include: * Starting Novolog insulin to cover carbs and correct any hyperglycemia * Restarted home Metformin dose on 06/06/20 * Patient has been receiving/requiring only bolus insulin for adequate glycemic control * BSGs ranging 110 - 202 mg/dl * Regimen has only required minor adjustments over the past 48hrs to achieve this level of control * Do not anticipate further changes in patient status that would quickly deteriorate glycemic control (i.e. patient to be NPO for upcoming procedure, steroids tapering, starting tube feedings, etc). * Please see recommendations for outpatient antidiabetic regimen below. PLAN FOR INPATIENT GLYCEMIC CONTROL: No changes needed to current regimen. * Continue Metformin 500 mg PO BIDM * Continue NovoLog per scale ACHS/Q6hrs while NPO * Goal range = 110 - 140 mg/dl * CF = 25 mg/dl/unit * No carb ratio while on Metformin * Pharmacy is signing off of glycemic consult and will no longer be making adjustments to inpatient regimen. Please feel free to re-consult if needed. Thank you. DISCHARGE RECOMMENDATIONS: * HbA1c is 7.0% from earlier this month. This is at goal given patient's age and comorbidities. * Recommend continuing outpatient regimen of Tradjenta 5 mg PO AM and Metformin 500 mg PO BIDM upon discharge.
[2020-06-07] MEDS: TRIAMCINOLONE ACET NASAL SPRAY 10.8ML BTL SCH (20:37)
[2020-06-07] MEDS: SENNA 8.6 MG TAB PO SCH (20:38)
[2020-06-08] MEDS: LEVOTHYROXINE SODIUM 112 MCG TABLET PO SCH (05:14)
[2020-06-08] MEDS: ACETAMINOPHEN 500 MG TAB PO SCH ×3 (05:14→21:06)
--- NOTE | 2020-06-08 08:26 | Progress Notes ---
DATE: 06/08/2020 SUBJECTIVE: A 75-year-old gentleman postop day 3 from right knee replacement. He has really been slow to progress in physical therapy. Apparently, he is doing quite a bit better this morning. He was a 2-person assist up until today. Only one person assist currently. His pain is controlled. He says his leg just feels weak, but it is getting better. No chest pain or shortness of breath. OBJECTIVE: VITAL SIGNS: Temperature 36.4. Vital signs stable. GENERAL: Shows a pleasant elderly male. He was walking with assistance to the bathroom when I visited him this morning. He looks to be getting around okay with some assistance. EXTREMITIES: Examination of the right leg reveals the leg to be well aligned. Dressing is clean, dry, and intact. He can dorsiflex and plantarflex his foot appropriately. Still struggling to do a straight leg raise. ASSESSMENT: A 75-year-old gentleman postoperative day 3 from right knee replacement, doing better. His pain is controlled. He was really functioning pretty poorly up until today and doing better this morning. We are going to have to see how therapy goes today. PLAN: 1. DVT prophylaxis including thigh-high TEDs, SCDs, and aspirin twice a day. 2. PT/OT. Weight bear as tolerated. Right total knee protocol. 3. Pain control, doing okay with current pain regimen. 4. Disposition: We are going to have to see how therapy dose today. If he is doing better, we may be able to get him home with home health. Alternatively, he will need to go for a rehab stay.
[2020-06-08] MEDS: lisinopril 20 MG TAB PO SCH (09:09)
[2020-06-08] MEDS: TORSEMIDE 20 MG TAB PO SCH (09:10)
[2020-06-08] MEDS: MULTIVITAMIN TAB PO SCH (09:10)
[2020-06-08] MEDS: ASCORBIC ACID 500 MG TAB PO SCH ×2 (09:10→17:35)
[2020-06-08] MEDS: carvediloL 6.25 MG TAB PO SCH ×2 (09:11→21:04)
[2020-06-08] MEDS: DOCUSATE SODIUM 100 MG CAP PO SCH ×2 (09:11→21:04)
[2020-06-08] MEDS: ASPIRIN 81 MG ECTAB PO SCH ×2 (09:11→21:03)
[2020-06-08] MEDS: OMEGA-3 (PURIFIED FISH OIL) 1 GM CAP PO SCH ×2 (09:11→21:04)
[2020-06-08] MEDS: POTASSIUM CHLORIDE 10 MEQ TABCR PO SCH ×2 (09:11→21:05)
[2020-06-08] MEDS: FLUTICASONE/VILANTEROL 100/25MCG 14 PUFFS/INHALER INH SCH (09:12)
[2020-06-08] MEDS: metFORMIN HCL 500 MG TAB PO SCH ×2 (09:13→17:35)
[2020-06-08] MEDS: INSULIN ASPART 100 UNITS/ML 3 ML PEN SC SCH ×4 (09:16→21:08)
[2020-06-08] MEDS: traMADol HCL 50 MG TABLET PO PRN ×2 (10:23→20:04)
[2020-06-08] MEDS: TRIAMCINOLONE ACET NASAL SPRAY 10.8ML BTL SCH (21:05)
[2020-06-08] MEDS: SENNA 8.6 MG TAB PO SCH (21:07)
[2020-06-09] MEDS: ACETAMINOPHEN 500 MG TAB PO SCH (05:31)
[2020-06-09] MEDS: LEVOTHYROXINE SODIUM 112 MCG TABLET PO SCH (05:31)
--- NOTE | 2020-06-09 09:19 | Progress Notes ---
DATE: 06/09/2020 SUBJECTIVE: A 75-year-old gentleman postop day 4 from a right total knee replacement. He is making slow progress. His pain is controlled, just having trouble getting around. No chest pain or shortness of breath. Not feeling dizzy or lightheaded. OBJECTIVE: VITAL SIGNS: Temperature 36.5. Vital signs stable. GENERAL: Shows a pleasant elderly male. He is lying in bed, looks pretty comfortable. EXTREMITIES: Examination of the right leg reveals the leg to be well aligned. A little bit of bloody drainage from the inferior aspect of incision. He has difficulty doing a straight leg raise. He can dorsiflex and plantarflex his foot appropriately. ASSESSMENT: A 75-year-old gentleman, postoperative day 4 from right knee replacement, doing okay, but struggling functionally. He is requiring quite a bit of assistance. 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 PLAN: We talked about treatment. We have discussed rehab versus home and he really wants to go home. His is not in the best condition to take care of him and he is requiring quite a bit of assistance. We will see how therapy goes today. If he is doing okay, he can go home with home health, but he may need a rehab stay. We need to make a decision on this. We will see how therapy goes today. He will continue DVT prophylaxis including thigh-high TEDs, SCDs, and aspirin. I will see him back 2 weeks postop.
[2020-06-09] MEDS: metFORMIN HCL 500 MG TAB PO SCH (09:29)
[2020-06-09] MEDS: carvediloL 6.25 MG TAB PO SCH (09:30)
[2020-06-09] MEDS: OMEGA-3 (PURIFIED FISH OIL) 1 GM CAP PO SCH (09:30)
[2020-06-09] MEDS: TORSEMIDE 20 MG TAB PO SCH (09:30)
[2020-06-09] MEDS: ASCORBIC ACID 500 MG TAB PO SCH (09:30)
[2020-06-09] MEDS: DOCUSATE SODIUM 100 MG CAP PO SCH (09:30)
[2020-06-09] MEDS: POTASSIUM CHLORIDE 10 MEQ TABCR PO SCH (09:30)
[2020-06-09] MEDS: MULTIVITAMIN TAB PO SCH (09:31)
[2020-06-09] MEDS: lisinopril 20 MG TAB PO SCH (09:31)
[2020-06-09] MEDS: INSULIN ASPART 100 UNITS/ML 3 ML PEN SC SCH (09:31)
[2020-06-09] MEDS: FLUTICASONE/VILANTEROL 100/25MCG 14 PUFFS/INHALER INH SCH (09:31)
[2020-06-09] MEDS: ASPIRIN 81 MG ECTAB PO SCH (09:31)
--- NOTE | 2020-06-13 08:53 | Discharge Summary ---
Date of Service June 13, 2020 Discharge Data Consultations 06/05/20 15:17 Consult Case Management - Discharge Planning Routine Procedures Performed Operation Date: 06/05/20 10:55 Actual Procedures p Right Total Knee Arthroplasty - [place] Umana MD Hospital Course (1) Status post total right knee replacement: This patient is a 75 year old male admitted on 06/05/20 and underwent total knee arthroplasty. He tolerated the procedure well and there were no complications. Transferred to the PACU post op and later to the orthopedic floor for further care. He was given ancef for antibiotic prophylaxis. He was also given LEIGH stockings, SCDs, and aspirin for DVT prophylaxis. Hemoglobin, hematocrit, and vital signs were monitored during his hospital stay and remained stable. Did not require any blood transfusions. There were no complications during his hospital stay. By post op day #4 the patient was tolerating a diabetic diet, pain was reasonably controlled with oral pain medicine, and he was participating in physical therapy. He did have a slower progress with therapy. On post op day #4 the patient was discharged home and set up with home health care. He was given printed discharge instructions including prescriptions for extra strength tylenol, aspirin, and tramadol. Continue physical therapy, weight bearing as tolerated. Continue LEIGH stockings. Follow up approximately 2 weeks post op or sooner if there are problems or concerns. Coding Level of Care Code None Diagnoses Status post total right knee replacement Z96.651
== END 2020-06-09 11:49 | disposition home health service (06) ==
LOC: 3E 08:42 → ASU 08:42